=== PATIENT | female | born 1985 | race Caucasian/White ===

== ENCOUNTER 2023-02-17 08:00 | Outpatient (OUT) | payer BC, SELFPAY ==
--- NOTE | 2023-02-17 08:11 | MM_ITS ---
Patient: CHELO ROGERS Exam Date: 02/17/2023 : 1985 Gender:F Ordering : DR Hector Kellogg . Admission #: [id number] Family : DR KEN GRIGSBY M.D. Order #: [id number] CLICK HERE TO VIEW EXAM RADIOLOGY REPORT PROCEDURE: MM TOMOSYNTHESIS SCREENING BI COMPARISON: None. INDICATIONS: SCREENING Calculator Name NCI Breast Cancer Risk Assessment Tool 5 Year Breast Cancer Risk 0.70% Lifetime Breast Cancer Risk 13.70% Personal Breast Cancer No Personal Ovarian Cancer No Treatments None Family Cancers Grandmother-paternal with cervical cancer at age ~80; Aunt-paternal with uterine cancer at age 15. LOCATION: [facility] BREAST COMPOSITION: Heterogeneously dense,which may obscure small masses. FINDINGS: DIAGNOSTIC CATEGORY 2--BENIGN FINDING: RIGHT BREAST: No significant suspicious finding. Small benign appearing lymph node posterior upper-outer quadrant. LEFT BREAST: No significant suspicious finding. RECOMMENDATIONS: ROUTINE MAMMOGRAM AND CLINICAL EVALUATION IN 12 MONTHS. PLEASE NOTE: A NORMAL MAMMOGRAM DOES NOT EXCLUDE THE POSSIBILITY OF BREAST CANCER. A CLINICALLY SUSPICIOUS PALPABLE LUMP SHOULD BE BIOPSIED. Dictated by: Ilir Honeycutt M.D. on 02/17/2023 at 16:24 Approved by: Ilir Honeycutt M.D. on 02/17/2023 at 16:27
== END 2023-02-17 08:01 ==
LOC: MAMMO 08:02
PROVIDERS: PCP Internal Medicine; Visit Provider Obstetrics & Gynecology
DX: Z12.31 Encounter for screening mammogram for malignant neoplasm of breast (principal); Z80.49 Family history of malignant neoplasm of other genital organs
CPT/HCPCS: 77063; 77067

== ENCOUNTER 2024-02-07 20:56 | Outpatient (REF) | payer BC, SELFPAY | END 2024-02-07 20:57 | disposition home or self-care (01) | LOC: LAB 20:56 | PROVIDERS: PCP Family Medicine; Visit Provider Obstetrics & Gynecology | DX: Z01.419 Encounter for gynecological examination (general) (routine) without abnormal findings (principal) | CPT/HCPCS: 87624; 88175 ==

== ENCOUNTER 2024-02-11 11:03 | Outpatient (OUT) | payer BC, SELFPAY ==
--- NOTE | 2024-02-08 | MM_ITS ---
Patient Name: CHELO ROGERS MR#: [id number] : 1985 Exam Date: 02/08/2024 Ordering Doctor: DR Hector Kellogg . RADIOLOGY REPORT PROCEDURE: MM TOMOSYNTHESIS SCREENING BI COMPARISON: MM TOMOSYNTHESIS SCREENING BI, 02/17/2023. INDICATIONS: screening for malignant neoplasm Calculator Name NCI Breast Cancer Risk Assessment Tool 5 Year Breast Cancer Risk 0.80% Lifetime Breast Cancer Risk 13.60% Personal Breast Cancer No Personal Ovarian Cancer No Treatments None Family Cancers Grandmother-paternal with cervical cancer at age ~80; Aunt-paternal with uterine cancer at age 15. LOCATION: [facility] BREAST COMPOSITION: The breasts are heterogeneously dense,which may obscure small masses. FINDINGS: DIAGNOSTIC CATEGORY 2--BENIGN FINDING: RIGHT BREAST: No significant suspicious finding. Stable upper outer quadrant lymph node. No significant change has occurred. LEFT BREAST: No significant suspicious finding. No significant change has occurred. RECOMMENDATIONS: ROUTINE MAMMOGRAM AND CLINICAL EVALUATION IN 12 MONTHS. PLEASE NOTE: A NORMAL MAMMOGRAM DOES NOT EXCLUDE THE POSSIBILITY OF BREAST CANCER. A CLINICALLY SUSPICIOUS PALPABLE LUMP SHOULD BE BIOPSIED. Dictated by: Ilir Honeycutt M.D. on 02/10/2024 at 14:21 Approved by: Ilir Honeycutt M.D. on 02/10/2024 at 14:23
--- OUTSIDE RECORDS SUMMARY | 2024-02-11 11:26 | XMS_ITS | CCD ---
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 Role Phone Unknown, Referring Provider Unavailable Unav ailable Unavailable Unavailable Lora Ziegler Unavailable SMITA ., DR PRABHAKAR Primary Care Unavailable SMITA ., DR PRBAHAKAR Admitting Unavailable SMITA ., DR PRABHAKAR Attending Unavailable SMITA ., DR PRABHAKAR Consulting Unavailable SMITA ., DR PRABHAKAR Primary Care Unavailable CONSTANTINO, DR KEN Lawton Attending Unavailable CONSTANTINO, DR KNE Lawton Consulting Unavailable CONSTANTINO, DR KEN Lawton Admitting Unavailable CARLOS FERNANDES Attending Unavailable VANNA ORDOÑEZ Attending Unavailable Medications Current Medications Medication Drug Class(es) Dates Sig (Normalized) Sig (Original) amoxicillin 500 mg oral capsule (1 source) Penicillin-class Antibacterial Start: 09-27-2022 take 1 capsule by mouth every eight hours Amoxicillin 500 MG 1 capsule Orally three times a day for 10 day(s) Sep, Active Cetirizine (1 source) Histamine-1 Receptor Antagonist ZyrTEC Allergy Active dimenhyDRINATE (5 sources) Dramamine Active dimenhyDRINATE 5 0 MG TABS Quantity: 0 Refills: 0 Ordered: 28-Jan-2021 DO Active hydroCHLOROthiazide 25 mg / triamterene 37.5 mg oral tablet (5 sources) Potassium-sparing Diuretic, Thiazide Diuretic take 1 tablet by mouth every twenty-four hours Triamterene-HCTZ 37.5-25 MG 1 tablet in the morning Orally Once a day for 30 day(s) Active Triamterene-HCTZ 37.5-25 MG Oral Capsule Quantity: 0 Refills: 0 Ordered: 28-Jan-2021 DO Active Lipo-Flavonoid Plus (1 source) Lipo-Flavonoid P edgardo as directed Orally Active predniSONE 20 mg oral tablet (1 source) Start: 09-27-2022 take 1 tablet by mouth every twelve hours predniSONE 20 MG 1 tablet Orally 2 times a day for 5 day(s) Sep, Active Completed/Discontinued Medications Medication Drug Class(es) Dates Sig (Normalized) Sig (Original) amitriptyline hydrochloride 25 mg oral tablet (3 sources) Tricyclic Antidepressant Start: 01-28-2021 take 1 tablet by mouth at bedtime Amitriptyline HCl - 25 MG Oral Tablet TAKE 1 TABLET AT BEDTIME. Quantity: 30 Refills: 0 Ordered: 25-Mar-2021 Kvng Chen MD Start : 28-Jan-2021 Active Lipo Flavonoid Plus TABS (4 sources) Lipo Flavonoid Plus TABS Quantity: 0 Refills: 0 Ordered: 28-Jan-2021 DO Active loratadine 10 mg oral tablet (4 sources) Loratadine 10 MG Oral Tablet Quantity: 0 Refills: 0 Ordered: 28-Jan-2021 DO Active Problems Problem Classification Problem Date Documented Date Episodic/Chronic Conditions associated with dizziness or vertigo (3 sources) Meniere's disease; Translations: [Meniere's disease, unspecified] Chronic Immunizations and screening for infectious disease (2 sources) Contact with and (suspected) exposure to other viral communicable diseases; Translations: [Contact with and (suspected) exposure to other viral communicable diseases] Episodic Other ear and sense organ disorders (3 sources) Tinnitus; Translations: [Tinnitus, unspecified] Episodic Other screening for suspected conditions (not mental disorders or infectious disease) (4 sources) Encounter for screening for malignant neoplasm of cervix; Translations: [ENC SCREENING MALIG NEOPLASM CERV] Onset: 02-02-2023 Episodic Other upper respiratory infections (1 source) Streptococcal pharyngitis Episodic Results Test Name Value Interpretation Reference Range Facility COVID + FLU Quick Testingon 09-27-2022 SARS-CoV-2 (COVID-19) RNA TIANA+probe Ql (Unsp spec) Negative [facility] Other COVID + FLU Quick Testing Negative [facility] Other Quick Strepon 09-27-2022 S. pyogenes Org specific cx Ql (Throat) Positive [facility] Other Quick Strep [facility] [employer] Other CBC AUTO DIFFon 06-19-2022 BASO # 0.1 103/ul Normal 0.0-0.1 [facility] Comment on above: Performed By: #### C BC #### [facility] [address] [place] [address] Dr. Simin Estevez Basophils/100 WBC (Bld) 1.0 % Normal 0.2-2.0 [facility] Comment on above: Performed By: #### C BC #### [facility] [address] [place] [address] Dr. Simin Estevez EO # 0.2 103/ul Normal 0.0-0.7 [facility] Comment on above: Performed By: #### C BC #### [facility] [address] [place] [address] Dr. Simin Estevez Eosinophils/100 WBC (Bld) 3.2 % Normal 0.9-7.0 [facility] Comment on above: Performed By: #### C BC #### [facility] [address] [place] [address] Dr. Simin Estevez Erythrocyte distribution width (RBC) [Ratio] 12.1 % Normal 11.0-15.0 [facility] Comment on above: Performed By: #### C BC #### [facility] [address] [place] [address] Dr. Simin Estevez Hematocrit (Bld) [Volume fraction] 40.8 % Normal 36.0-48.0 [facility] Comment on above: Performed By: #### C BC #### [facility] [address] [place] [address] Dr. Simin Estevez Hemoglobin (Bld) [Mass/Vol] 14.2 g/dL Normal 12.0-16.0 [facility] Comment on above: Performed By: #### C BC #### [facility] [address] [place] [address] Dr. Simin Estevez IG # 0.01 10e3/ul Normal 0.00-0.03 [facility] Comment on above: Performed By: #### C BC #### [facility] [address] [place] [address] Dr. Simin Estevez IG % 0.2 % Normal 0.0-0.5 [facility] Comment on above: Performed By: #### C BC #### [facility] [address] [place] [address] Dr. Simin Estevez LYMPH # 1.6 103/ul Normal 1.2-3.8 [facility] Comment on above: Performed By: #### C BC #### [facility] [address] [place] [address] Dr. Simin Estevez Lymphocytes/100 WBC (Bld) 26.1 % Normal 20.5-60.0 [facility] Comment on above: Performed By: #### C BC #### [facility] [address] [place] [address] Dr. Simin Estevez MANUAL DIFF REQ NO Normal [facility] Comment on above: Performed By: #### C BC #### [facility] [address] [place] [address] Dr. Simin Estevez MCH (RBC) [Entitic mass] 30.5 pg Normal 26.7-34.0 [facility] Comment on above: Performed By: #### C BC #### [facility] [address] [place] [address] Dr. Simin Estevez MCHC (RBC) [Mass/Vol] 34.8 g/dL Normal 29.9-35.2 [facility] Comment on above: Performed By: #### C BC #### [facility] [address] [place] [address] Dr. Simin Estevez MCV (RBC) [Entitic vol] 87.6 fL Normal 81.0-99.0 [facility] Comment on above: Performed By: #### C BC #### [facility] [address] [place] [address] Dr. Simin Estevez MONO # 0.6 103/ul Normal 0.3-0.8 [facility] Comment on above: Performed By: #### C BC #### [facility] [address] [id number] [address] Simin Estevez Monocytes/100 WBC (Bld) 9.2 % Normal 1.7-12.0 [facility] Comment on above: Performed By: #### C BC #### [facility] [address] [address] [address] Simin Estevez NEUT # 3.6 103/ul Normal 1.4-6.5 [facility] Comment on above: Performed By: #### C BC #### [facility] [address] [place] [address] Dr. Simin Estevez Neutrophils/100 WBC (Bld) 60.3 % Normal 43.0-75.0 [facility] Comment on above: Performed By: #### C BC #### [facility] [address] [place] [address] Dr. Simin Estevez Platelet mean volume (Bld) [Entitic vol] 8.7 fL Critically low 9.5-13.5 [facility] Comment on above: Performed By: #### C BC #### [facility] [address] [place] [address] Dr. Simin Estevez PLT 266 103/ul Normal 150-450 [facility] Comment on above: Performed By: #### C BC #### [facility] [address] [place] [address] Dr. Simin Estevez RBC 4.66 106/ul Normal 4.20-5.40 [facility] Comment on above: Performed By: #### C BC #### [facility] [address] [place] [address] Dr. Simin Estevez WBC 6.0 103/ul Normal 4.0-11.0 [facility] Comment on above: Performed By: #### C BC #### [facility] [address] [place] [address] Dr. Simin Estevez LIPID PROFILEon 06-19-2022 CHOL-HDL RATIO NORM SEE BELOW Normal [facility] Comment on above: Result Comment: 3.3 - 4.4 LOW RISK 4.4 - 7.1 AVERAGE RISK 7.1 - 11.0 MODERATE RISK >11.0 HIGH RISK Performed By: #### L IPID, CMP #### [facility] [address] [address] [address] Simin Estevez Cholesterol [Mass/Vol] 182 mg/dL Normal <=200 [facility] Comment on above: Performed By: #### L IPID, CMP #### [facility] [address] [address] [address] Simin Estevez Cholesterol in HDL [Mass/Vol] 59 mg/dL Normal 40-60 [facility] Comment on above: Performed By: #### L IPID, CMP #### [facility] [address] [address] [address] Simin Estevez Cholesterol in LDL [Mass/Vol] 104.8 mg/dL Normal [facility] Comment on above: Performed By: #### L IPID, CMP #### [facility] [address] [address] [address] Simin Estevez Cholesterol.total/ Cholesterol in HDL [Mass ratio] 3.1 {ratio} Normal [facility] Comment on above: Performed By: #### L IPID, CMP #### [facility] [address] [address] [address] Simin Estevez HDL NORMAL > or = 60 mg/dl - LOW CARDIOVASCULAR RISK <40 mg/dl - HIGH CARDIOVASCULAR RISK Normal [facility] Comment on above: Performed By: #### L IPID, CMP #### [facility] [address] [address] [address] Simin Estevez LDL CALC NORMAL SEE BELOW Normal [facility] Comment on above: Result Comment: <100 mg/dl OPTIMAL 100 - 129 mg/dl NEAR OR ABOVE OPTIMAL 130 - 159 mg/dl BORDERLINE HIGH 160 - 189 mg/dl HIGH >190 mg/dl VERY HIGH Performed By: #### L IPID, CMP #### [facility] [address] [address] [address] Simin Estevez Triglyceride [Mass/Vol] 91 mg/dL Normal <=150 [facility] Comment on above: Performed By: #### L IPID, CMP #### [facility] [address] [address] [address] Simin Estevez VLDL CALC 18.2 mg/dL Normal [facility] Comment on above: Performed By: #### L IPID, CMP #### [facility] [address] [address] [address] Simin Estevez PROF 14(COMP METB)on 06-19- 022 Albumin [Mass/Vol] 3.7 g/dL Normal 3.4-5.0 [facility] Comment on above: Performed By: #### L IPID, CMP #### [facility] [address] [place] [address] Dr. Simin Estevez Albumin/Globulin [Mass ratio] 1.2 {ratio} Normal [facility] Comment on above: Performed By: #### L IPID, CMP #### [facility] [address] [place] [address] Dr. Simin Estevez ALP [Catalytic activity/Vol] 37 U/L Critically low 46-116 [facility] Comment on above: Performed By: #### L IPID, CMP #### [facility] [address] [place] [address] Dr. Simin Estevez ALT [Catalytic activity/Vol] 46 U/L Normal 14-59 [facility] Comment on above: Performed By: #### L IPID, CMP #### [facility] [address] [place] [address] Dr. Simin Estevez Anion gap [Moles/Vol] 6.0 mmol/L Normal [facility] Comment on above: Performed By: #### L IPID, CMP #### [facility] [address] [place] [address] Dr. Simin Estevez AST [Catalytic activity/Vol] 18 U/L Normal 15-37 [facility] Comment on above: Performed By: #### L IPID, CMP #### [facility] [address] [place] [address] Dr. Simin Estevez Bilirubin [Mass/Vol] 0.6 mg/dL Normal 0.2-1.0 [facility] Comment on above: Performed By: #### L IPID, CMP #### [facility] [address] [address] [address] Simin Estevez Calcium [Mass/Vol] 8.9 mg/dL Normal 8.5-10.1 [facility] Comment on above: Performed By: #### L IPID, CMP #### [facility] [address] [address] [address] Simin Estevez Chloride [Moles/Vol] 101 mmol/L Normal 98-107 [facility] Comment on above: Performed By: #### L IPID, CMP #### [facility] [address] [place] [address] Dr. Simin Estevez CO2 [Moles/Vol] 36.1 mmol/L Critically high 21.0-32.0 [facility] Comment on above: Performed By: #### L IPID, CMP #### [facility] [address] [place] [address] Dr. Simin Estevez Creatinine [Mass/Vol] 0.78 mg/dL Normal 0.55-1.02 [facility] Comment on above: Performed By: #### L IPID, CMP #### [facility] [address] [place] [address] Dr. Simin Estevez EGFR-AF CZECH >60 Normal >=60 [facility] Comment on above: Performed By: #### L IPID, CMP #### [facility] [address] [place] [address] Dr. Simin Estevez EGFR-NON AF CZECH >60 Normal >=60 [facility] Comment on above: Performed By: #### L IPID, CMP #### [facility] [address] [place] [address] Dr. Simin Estevez Globulin (S) [Mass/Vol] 3.2 g/dL Normal [facility] Comment on above: Performed By: #### L IPID, CMP #### [facility] [address] [place] [address] Dr. Simin Estevez Glucose [Mass/Vol] 81 mg/dL Normal 74-106 [facility] Comment on above: Performed By: #### L IPID, CMP #### [facility] [address] [address] [address] Simin Estevez Potassium [Moles/Vol] 3.1 mmol/L Critically low 3.5-5.1 [facility] Comment on above: Performed By: #### L IPID, CMP #### [facility] [address] [address] [address] Simin Estevez Protein [Mass/Vol] 6.9 g/dL Normal 6.4-8.2 [facility] Comment on above: Performed By: #### L IPID, CMP #### [facility] [address] [address] [address] Simin Estevez Sodium [Moles/Vol] 140 mmol/L Normal 136-145 [facility] Comment on above: Performed By: #### L IPID, CMP #### [facility] [address] [address] [address] Simin Estevez Urea nitrogen [Mass/Vol] 12.0 mg/dL Normal 7.0-18.0 [facility] Comment on above: Performed By: #### L IPID, CMP #### [facility] [address] [address] [address] Simin Estevez Urea nitrogen/Creatinin e [Mass ratio] 15.4 mg/mg Normal [facility] Comment on above: Performed By: #### L IPID, CMP #### [facility] [address] [place] [address] Dr. Simin Estevez Thyroid Stimulating Hormoneo n 06-27-2021 TSH Qn 1.10 m[IU]/L Normal 0.45-5.33 [facility] Comment on above: Result Comment: PERF ORMED BY: [place] [address] PATHOLOGIST DEHORNER JAY OWEN M.D. Performed By: #### T SH3 #### [address] Initial Visit (Otolaryngolog y)on 01-28-2021 Initial Visit (Otolaryngology) Orders Tobacco Use Screening; Status:Complete; Done: 28Jan2021 Chief Complaint New patient visit possible meniere's disease History of Present IllnessHistory of present illness: This is a 35-year-old female referred by Dr. Veronica for evaluation and management of patient left-sided Mnire's disease and subjective non-bothersome tinnitus. She has been struggling with hearing at work given face mask requirement. She uses binaural hearing aids. She has had few episodes of vertiginous dizziness but no significant episodes lately. Denies associated auditory complains during vertigo episodes. Admits to family history of Meniere's and personal history of migraine. Stated that her Meniere's disease flared up when she had her second daughter. She is also complaining of non-bothersome tinnitus and does take like flavonoid acid for it. Her significant other regarding her condition. Reportedly had an MRI which was negative. The patients current medications, active allergies and list of medical problems were reviewed in the EHR and confirmed electronically. Physical Examination: CONSTITUTIONAL: No acute distress VOICE: No hoarseness or other abnormality RESPIRATION: Breathing comfortably, no stridor CV: No clubbing/cyanosis/ed karla in hands EYES: EOM intact, sclera clear NEURO: Alert and oriented times 3, Cranial nerves II-XII grossly intact and symmetric bilaterally HEAD AND FACE: Symmetric facial features, no masses or lesions RIGHT EAR: Normal external ear and post auricular area, no visible lesions, external auditory canal patent, tympanic membrane intact, no retraction, no signs of mass, effusion, or infection within the middle ear LEFT EAR: Normal external ear and post auricular area, no visible lesions, external auditory canal patent, tympanic membrane intact, no retraction, no signs of mass, effusion, or infection within the middle ear NOSE: Deferred due to Covid-19 pandemic. ORAL CAVITY/OROPHARYNX/LI PS: Deferred due to Covid-19 pandemic. PHARYNGEAL NEIL: Deferred due to Covid-19 pandemic. NECK/LYMPH: No LAD, no thyroid masses, trachea midline SKIN: Neck and facial skin is without scar or injury PSYCH: Alert and oriented with appropriate mood and affect Romberg test negative Sharpened Romberg with tendency to fall to the right side. Diagnostic testing: Audiogram obtained on 07/24/2020 reviewed showed on the right mild to moderate rising to mild sensorineural hearing loss with excellent speech discrimination. Left was moderate to moderately severe sensorineural hearing loss and speech discrimination 92%. Bilateral asymmetrical sensorineural hearing loss I personally reviewed the available patients external record and independently reviewed their audiometric testing as detailed in my note and agree with the detailed report. Impression: Asymmetrical sensorineural hearing loss Left-sided Mnire's disease History of migraine History of vertigo Subjective tinnitus Recommendation: We reviewed her different diagnoses. Her Mnire's disease is well controlled currently with medication and no indication for further surgical management at this time. We discussed the various distraction and masking techniques for her tinnitus. I will prescribe her Elavil 25 mg to take as needed. Hearing aids may need to be adjusted. Follow-up with Dr. Fenrandes for the time being and if her vertiginous attacks worsen then I would be happy to see her to discuss further options. All questions were answered to her satisfaction I discussed with the patient the complexity of my medical decision making including the treatment and testing rational, indications of their elective procedure and possible adverse effects and/or complications. Based on the provided documentation and my professional assessment of this patients chronic stable conditions, the complexity of evaluation and treatment is moderate. This note was created using speech recognition child care specialist software. Despite proofreading, several typographical errors might be present that might affect the meaning of the content. Please call with any questions. Surgical History History of Anterior cruciate ligament repair Social History Employed Lives with family No alcohol use Non-smoker (V49.89) (Z78.9) Allergies No Known Drug Allergies Recorded By: Cindi Rivera; 01/28/2021 10:09:24 AM Current Meds Medication NameInstruction dimenhyDRINATE 50 MG TABS Lipo Flavonoid Plus TABS Loratadine 10 MG Oral Tablet Triamterene-HCTZ 37.5-25 MG Oral Capsule Vitals Vital Signs Recorded: [id number] 10:06AM Uvzxzwjoosz28.2 F Height5 ft 9 in Giooai744 lb 4 oz BMI Wsjbbyaqlp54.36 kg/m2 BSA Calculated2 Tobacco Useb) No Fall Screeninga) No falls within the last year 'Scores and Scales' Signatures Electronically signed by : Kvng Chen MD; Jan 28 2021 11:26AM EST (Author) Normal [facility]tan Tobacco Screening.on Fall risk assessment a) No falls within the last year -Otolaryngology -[employer] Work Phone: Tobacco use status CP b) No [facility] Work Phone: Tobacco Screening. b) No [facility] [facility] -[employer] Work Phone: Vital Signs Date Time Vital Sign Value Performing Clinician Facility 09-27-2022 10:00-0500 Body height 172.72 cm Lora Jordanmond Other [facility] Other 09-27-2022 10:00-0500 Body mass index (BMI) [Ratio] 28.13 kg/m2 Lora Jordanmond Other [facility] Other 09-27-2022 10:00-0500 Body temperature 98.4 [degF] Lora Jordanmond Other [facility] Other 09-27-2022 10:00-0500 Body weight 83.92 kg Lora Ziegler Other [facility] Other 09-27-2022 10:00-0500 Diastolic blood pressure 72 mm[Hg] Lora Jrodanmond Other [facility] Other 09-27-2022 10:00-0500 Respiratory rate 16 /min Lora Jordanmond Other [facility] Other 09-27-2022 10:00-0500 SaO2% (BldA) [Mass fraction] 98 % Lora Jordanmond Other [facility] Other 09-27-2022 10:00-0500 Systolic blood pressure 118 mm[Hg] Lora Karlie Other [facility] Other 01-28-2021 10:06-0400 Body height 175.26 cm Referring Provider Unknown TY-Crpjhangldbgiw-[facility]n [facility] Work Phone: 01-28-2021 [phone] Body mass index (BMI) [Ratio] 27.36 kg/m2 Referring Provider Unknown GF-Rixnnigvfbnfnu-Orz [facility] Work Phone: 01-28-2021 [phone] Body surface area Derived from formula 2 m2 Referring Provider Unknown NS-Xfrxnutighrxyd-Jja [facility] Work Phone: [phone] Body temperature 97.2 [degF] Referring Provider Unknown WZ-Dhxngjupifpzom-Msu [facility] Work Phone: [phone] Body weight 84.03 kg Referring Provider Unknown KP-Rzgwyztfuuzirl-Joq [facility] Work Phone: Encounters Encounter Date Encounter Type Care Provider Facility Start: 02-07-2024 End: 02-07-2024 ambulatory VANNA ORDOÑEZ Not Available Start: 11-29-2023 End: 11-29-2023 ambulatory CARLOS FERNANDES Not Available Start: 02-02-2023 End: 02-02-[address] VANNA ORDOÑEZ . Facility: Start: 09-27-2022 End: 09-27-2022 ambulatory Lora Ziegler Other [facility] Other Start: 09-27-2022 Office outpatient ne w 30 minutes Lora Ziegler [facility] Start: 06-20-2022 Encounter for genera l adult medical examination without abnormal findings DR KEN CONSTANTINO [facility] Start: 06-19-2022 End: 06-20-[address] VANNA ORDOÑEZ . Facility: Start: 06-19-2022 End: 06-20-2022 Encounter for general adult medical examination without abnormal findings DR VANNA ORDOÑEZ . Facility: Start: 03-25-2021 AUDIT Referring Prov ider Unknown EM-Buoxeycumjcuny-Tzrvi sharda Work Phone: Start: 02-20-2021 AUDIT Referring Prov ider Unknown BW-Ictzujauplfqbd-Rrgde burg Work Phone: Start: 01-28-2021 Office consultation new/estab patient 60 min Referring Provider Unknown OK-Icxphxtydgnttc-Ajmqa ake Work Phone: Procedures Date Procedure Procedure Detail Performing Clinician Repair of anterior c ruciate ligament of knee joint Referring Provider Unknown Payers Date Payer Category Payer Unknown [id number] [id number] [id number] 1983 Unknown [id number] 2.16.84 [id number] 1983 Unknown [id number] [id number] [id number] 1983 Unknown [id number] 2.16.84 [id number] [facility] ONLAN [id number] Unknown ANTHEM Social History Date Type Detail Facility [facility] Work Phone: Sex Assigned At Sex Assigned At Bir th [facility] Other Evaluation note 09-27-2022 Note Date & Type Note Facility 09-27-2022 Evaluation note Encounter Date Diagnosis Assessment Notes Sep, Contact with and (suspected) exposure to other viral communicable diseases (ICD-10 - Z20.828) Sep, Strep pharyngitis (ICD-10 - J02.0) Strep throat material was printed Drink plenty fluids, get plenty of rest. Take the amoxicillin and the prednisone as prescribed until gone. Take Tylenol or Motrin as needed for aches pains or fevers. Off work tomorrow. Follow-up with your family physician if no improvement in 2 to 3 days. [facility] Other History general Narrative - Reported Note Date & Type Note Facility History general Narrative - Reported Type Medical History [facility] Medical History [facility] History Left ear deafness Surgical History ACL left knee Surgical History tubal ligation Hospitalization History See past surgical hx [facility] Other History of Present illness Narrative Note Date & Type Note Facility History of Present illness Narrative History of present illness:This is a 35-year-old female referred by Dr. Veronica for evaluation and management of patient left-sided M ni re's disease and subjective non-bothersome tinnitus. She has been struggling with hearing at work given face mask requirement. She uses binaural hearing aids. She has had few episodes of vertiginous dizziness but no significant episodes lately. Denies associated auditory complains during vertigo episodes. Admits to family history of Meniere's and personal history of migraine. Stated that her Meniere's disease flared up when she had her second daughter. She is also complaining of non-bothersome tinnitus and does take like flavonoid acid for it. Her significant other regarding her condition. Reportedly had an MRI which was negative.The patient s current medications, active allergies and list of medical problems were reviewed in the EHR and confirmed electronically.Physical Examination:CONSTITUTIONAL: No acute distressVOICE: No hoarseness or other abnormalityRESPIRATION: Breathing comfortably, no stridorCV: No clubbing/cyanosis/edema in handsEYES: EOM intact, sclera clearNEURO: Alert and oriented times 3, Cranial nerves II-XII grossly intact and symmetric bilaterallyHEAD AND FACE: Symmetric facial features, no masses or lesionsRIGHT EAR: Normal external ear and post auricular area, no visible lesions, external auditory canal patent, tympanic membrane intact, no retraction, no signs of mass, effusion, or infection within the middle earLEFT EAR: Normal external ear and post auricular area, no visible lesions, external auditory canal patent, tympanic membrane intact, no retraction, no signs of mass, effusion, or infection within the middle earNOSE: Deferred due to Covid-19 pandemic.ORAL CAVITY/OROPHARYNX/LIPS: Deferred due to Covid-19 pandemic.PHARYNGEAL NEIL: Deferred due to Covid-19 pandemic.NECK/LYMPH: No LAD, no thyroid masses, trachea midlineSKIN: Neck and facial skin is without scar or injuryPSYCH: Alert and oriented with appropriate mood and affectRomberg test negativeSharpened Romberg with tendency to fall to the right side.Diagnostic testing:Audiogram obtained on 07/24/2020 reviewed showed on the right mild to moderate rising to mild sensorineural hearing loss with excellent speech discrimination. Left was moderate to moderately severe sensorineural hearing loss and speech discrimination 92%. Bilateral asymmetrical sensorineural hearing lossI personally reviewed the available patient s external record and independently reviewed their audiometric testing as detailed in my note and agree with the detailed report.Impression:Asymmetrical sensorineural hearing lossLeft-sided M ni re's diseaseHistory of migraineHistory of vertigoSubjective tinnitusRecommendation:We reviewed her different diagnoses. Her M ni re's disease is well controlled currently with medication and no indication for further surgical management at this time. We discussed the various distraction and masking techniques for her tinnitus. I will prescribe her Elavil 25 mg to take as needed. Hearing aids may need to be adjusted. Follow-up with Dr. Fernandes for the time being and if her vertiginous attacks worsen then I would be happy to see her to discuss further options. All questions were answered to her satisfactionI discussed with the patient the complexity of my medical decision making including the treatment and testing rational, indications of their elective procedure and possible adverse effects and/or complications. Based on the provided documentation and my professional assessment of this patient s chronic stable conditions, the complexity of evaluation and treatment is moderate.This note was created using speech recognition child care specialist software. Despite proofreading, several typographical errors might be present that might affect the meaning of the content. Please call with any questions. [id number] e Work Phone: History of Present illness Narrative Note Date & Type Note Facility History of Present illness Narrative History of present illness:This is a 35-year-old female referred by Dr. Veronica for evaluation and management of patient left-sided M ni re's disease and subjective non-bothersome tinnitus. She has been struggling with hearing at work given face mask requirement. She uses binaural hearing aids. She has had few episodes of vertiginous dizziness but no significant episodes lately. Denies associated auditory complains during vertigo episodes. Admits to family history of Meniere's and personal history of migraine. Stated that her Meniere's disease flared up when she had her second daughter. She is also complaining of non-bothersome tinnitus and does take like flavonoid acid for it. Her significant other regarding her condition. Reportedly had an MRI which was negative.The patient s current medications, active allergies and list of medical problems were reviewed in the EHR and confirmed electronically.Physical Examination:CONSTITUTIONAL: No acute distressVOICE: No hoarseness or other abnormalityRESPIRATION: Breathing comfortably, no stridorCV: No clubbing/cyanosis/edema in handsEYES: EOM intact, sclera clearNEURO: Alert and oriented times 3, Cranial nerves II-XII grossly intact and symmetric bilaterallyHEAD AND FACE: Symmetric facial features, no masses or lesionsRIGHT EAR: Normal external ear and post auricular area, no visible lesions, external auditory canal patent, tympanic membrane intact, no retraction, no signs of mass, effusion, or infection within the middle earLEFT EAR: Normal external ear and post auricular area, no visible lesions, external auditory canal patent, tympanic membrane intact, no retraction, no signs of mass, effusion, or infection within the middle earNOSE: Deferred due to Covid-19 pandemic.ORAL CAVITY/OROPHARYNX/LIPS: Deferred due to Covid-19 pandemic.PHARYNGEAL NEIL: Deferred due to Covid-19 pandemic.NECK/LYMPH: No LAD, no thyroid masses, trachea midlineSKIN: Neck and facial skin is without scar or injuryPSYCH: Alert and oriented with appropriate mood and affectRomberg test negativeSharpened Romberg with tendency to fall to the right side.Diagnostic testing:Audiogram obtained on 07/24/2020 reviewed showed on the right mild to moderate rising to mild sensorineural hearing loss with excellent speech discrimination. Left was moderate to moderately severe sensorineural hearing loss and speech discrimination 92%. Bilateral asymmetrical sensorineural hearing lossI personally reviewed the available patient s external record and independently reviewed their audiometric testing as detailed in my note and agree with the detailed report.Impression:Asymmetrical sensorineural hearing lossLeft-sided M ni re's diseaseHistory of migraineHistory of vertigoSubjective tinnitusRecommendation:We reviewed her different diagnoses. Her M ni re's disease is well controlled currently with medication and no indication for further surgical management at this time. We discussed the various distraction and masking techniques for her tinnitus. I will prescribe her Elavil 25 mg to take as needed. Hearing aids may need to be adjusted. Follow-up with Dr. Fernandes for the time being and if her vertiginous attacks worsen then I would be happy to see her to discuss further options. All questions were answered to her satisfactionI discussed with the patient the complexity of my medical decision making including the treatment and testing rational, indications of their elective procedure and possible adverse effects and/or complications. Based on the provided documentation and my professional assessment of this patient s chronic stable conditions, the complexity of evaluation and treatment is moderate.This note was created using speech recognition child care specialist software. Despite proofreading, several typographical errors might be present that might affect the meaning of the content. Please call with any questions. [id number] rg Work Phone: Chief Complaint New patient visit possible meniere's diseaseNew patient visit possible meniere's disease Summary Purpose Family History No Family History Records FoundNo Family History Records FoundNo Family History Records FoundNo Family History Records Found Advance Directives No Advanced Directives Records FoundNo Advanced Directives Records FoundNo Advanced Directives Records FoundNo Advanced Directives Records Found Additional Source Comments INFORMATION SOURCE (unrecogn ized section and content) DATE CREATED AUTHOR 02/01/2021 [employer] DATE CREATED AUTHOR AUTHOR'S ORGANIZ ATION 10/04/2021 [facility] DATE CREATED AUTHOR AUTHOR'S ORGANIZ ATION 02/12/2023 [facility] DATE CREATED AUTHOR AUTHOR'S ORGANIZ ATION 02/07/2024 [facility] EPIC REASON FOR VISIT (unrecogniz ed section and content) SORE THROAT, CONGESTION FOR RECORDS PERTAINING TO PATIENTS WHO ARE OR HAVE BEEN ENROLLED IN A CHEMICAL DEPENDENCY/SUBSTANCEABUSE PROGRAM, SOME INFORMATION MAY BE OMITTED. This clinical summary was aggregated from multiple sources. Caution should be exercised in using it in the provision of clinical care. This summary normalizes information from multiple sources, and as a consequence, information in this document may materially change the coding, format and clinical context of patient data. In addition, data may be omitted in some cases. CLINICAL DECISIONS SHOULD BE BASED ON THE PRIMARY CLINICAL RECORDS. [facility]. provides no warranty or guarantee of the accuracy or completeness of information in this document.
== END 2024-02-11 11:04 | disposition home or self-care (01) ==
LOC: MAMMO 11:03
PROVIDERS: PCP Family Medicine; Visit Provider Obstetrics & Gynecology
DX: Z12.31 Encounter for screening mammogram for malignant neoplasm of breast (principal); Z80.8 Family history of malignant neoplasm of other organs or systems
CPT/HCPCS: 77063; 77067

== ENCOUNTER 2025-02-12 08:45 | Outpatient (OUT) | payer BC, SELFPAY ==
--- NOTE | 2025-02-12 08:50 | MM_ITS ---
Patient Name: CHELO ROGERS MR#: [id number] : 1985 Exam Date: 02/12/2025 Ordering Doctor: DR VANNA ORDOÑEZ . RADIOLOGY REPORT PROCEDURE: MM TOMOSYNTHESIS SCREENING BI COMPARISON: MM TOMOSYNTHESIS SCREENING BI, 02/08/2024. MM TOMOSYNTHESIS SCREENING BI, 02/17/2023. INDICATIONS: Screening Calculator Name NCI Breast Cancer Risk Assessment Tool 5 Year Breast Cancer Risk 0.80% Lifetime Breast Cancer Risk 13.50% Personal Breast Cancer No Personal Ovarian Cancer No Treatments None Family Cancers Grandmother-paternal with cervical cancer at age ~80; Aunt-paternal with uterine cancer at age 15. LOCATION: [facility] BREAST COMPOSITION: The breasts are heterogeneously dense,which may obscure small masses. FINDINGS: DIAGNOSTIC CATEGORY 0--INCOMPLETE: NEED ADDITIONAL IMAGING EVALUATION. RIGHT BREAST: ASYMMETRY visible on only the cc view, located in the lateral breast, at the posterior depth, with size of approximately 5 mm. Left breast unremarkable . RECOMMENDATIONS: ADDITIONAL MAMMOGRAPHIC VIEWS REQUIRED: RIGHT BREAST - spot compression imaging ULTRASOUND: RIGHT BREAST PLEASE NOTE: A NORMAL MAMMOGRAM DOES NOT EXCLUDE THE POSSIBILITY OF BREAST CANCER. A CLINICALLY SUSPICIOUS PALPABLE LUMP SHOULD BE BIOPSIED. Dictated by: Fan Oneal DO on 02/12/2025 at 11:22 Approved by: Fan Oneal DO on 02/12/2025 at 11:33
--- OUTSIDE RECORDS SUMMARY | 2025-02-12 09:08 | XMS_ITS | CCD ---
Author Organization [facility] Care Team Providers Care Wheel Tuner Name Role Phone Unknown, Referring Provider Unavailable Unav ailable Unavailable Unavailable Lora Ziegler Unavailable SMITA ., DR PRABHAKAR Primary Care Unavailable SMITA ., DR PRABHAKAR Admitting Unavailable SMITA ., DR PRABHAKAR Attending Unavailable SMITA ., DR PRABHAKAR Consulting Unavailable SMITA ., DR PRABHAKAR Primary Care Unavailable CONSTANTINO, DR KING Lawton Attending Unavailable CONSTANTINO, DR KING Lawton Consulting Unavailable CONSTANTINO, DR KING Lawton Admitting Unavailable NO FAMILY, PHYSICIAN Primary Care Unavailable Letitia Soriano Attending Unavailable ChristieLetitia Admitting Unavailable NO FAMILY, PHYSICIAN Primary Care Provider Unava ilable Christie Letitia ECHAVARRIA Attending Provider [phone] King Constantino MD Unavailable King Constantino MD Primary Care Provider Ilir Sotelo MD Unavailable Brice Polanco Unavailable BRICE BRUNSON Attending Unavailable ESTHER SUÁREZ Attending Unavailable TIAN FERNANDES Attending Unavailable VANNA KELLOGG Attending Unavailable BRICE BRUNSON Attending Unavailable DAVE PEARSON Attending Unavailable ESTHER SUÁREZ Attending Unavailable TIAN FERNANDES Attending Unavailable DAVE PEARSON Attending Unavailable ESTHER SUÁREZ Attending Unavailable ESTHER SUÁREZ Attending Unavailable Allergies Allergy Classification Reported Allergen(s) Allergy Type Date of Onset Reaction(s) Facility (20 sources) Pollen Propensity to adverse reactions 4 [facility] Medications Current Medications Medication Drug Class(es) Dates Sig (Normalized) Sig (Original) [id number] 200 actuat albuterol 0.09 mg/actuat metered dose inhaler (1 source) beta2-Adrenergic Agonist Start: 07-17-2024 Albuterol Sulfate 90 mcg/actuation HFA aerosol inhaler Active 2 INH INHALATION EVERY 4-6 HOURS as needed for shortness of breath or wheezing 8.5 14 July 17, 2024 12:00am amitriptyline hydrochloride 25 mg oral tablet (4 sources) Tricyclic Antidepressant Start: 12-13-2024 take 0.5-1 tablets by mouth once daily at bedtime amitriptyline (Elavil) 25 MG tablet Indications: Migraine without aura and without status migrainosus, not intractable (CMS/HCC) 1/ - 1 tab PO QHS 30 tablet 2 12/13/2024 Active Start: 01-28-2021 take 1 tablet by tanner th at bedtime Amitriptyline HCl - 25 MG Oral Tablet TAKE 1 TABLET AT BEDTIME. Quantity: 30 Refills: 0 Ordered: 25-Mar-2021 Kvng Chen MD Start : 28-Jan-2021 Active amoxicillin 500 mg oral capsule (1 source) Penicillin-class Antibacterial Start: 09-27-2022 take 1 capsule by mouth every eight hours Amoxicillin 500 MG 1 capsule Orally three times a day for 10 day(s) Sep, Active azithromycin 250 mg oral tablet (1 source) Macrolide Antimicrobial Start: 07-17-2024 Azithromycin 250 mg tablet Active 0 PO .COMPLEX July 17, 2024 12:00am For 250 mg dose pack: take 500 mg today (day 1), then 250 mg for 4 days (days 2-5) PO BETAHISTINE (20 sources) Betahistine HCl (Betahistine Dihydrochloride) powder Active Cetirizine (1 source) Histamine-1 Receptor Antagonist ZyrTEC Allergy Active dimenhyDRINATE 50 mg oral tablet (20 sources) dimenhyDRINATE (Dramamine) 50 MG tablet Take 50 mg by mouth as needed at bedtime. Active Dramamine Active dimenhyDRINATE 5 0 MG TABS Quantity: 0 Refills: 0 Ordered: 28-Jan-2021 DO Active eletriptan 20 mg oral tablet (9 sources) Serotonin-1b and Serotonin-1d Receptor Agonist Start: 09-28-2024 End: 10-28-2024 eletriptan (Relpax) 20 MG tablet Indications: Migraine without aura and without status migrainosus, not intractable (CMS/HCC) Take 1 tablet (20 mg) by mouth 1 (one) time if needed for migraine (may repeat x1) May repeat in 2 hours if unresolved. Do not exceed 80 mg in 24 hours. 9 tablet 5 09/28/2024 Active hydroCHLOROthiazide 25 mg / triamterene 37.5 mg oral tablet (20 sources) Potassium-sparing Diuretic, Thiazide Diuretic Start: 07-25-2024 End: 10-23-2024 take 1 tablet by mouth once daily triamterene-hydro chlorothiazide (Maxzide-25) 37.5-25 MG tablet Indications: Meniere's disease, unspecified laterality Take 1 tablet by mouth Daily 90 tablet 3 07/25/2024 Active Start: 07-17-2024 take 1 tablet by tanner th once daily Triamterene-Hydrochlorothiazid 37.5-25 m g tablet Active 1 TAB PO Daily July 17, 2024 12:00am Start: 05-28-2023 take 1 tablet by tanner th in the morning triamterene-hydrochlorothiazide (Maxzide -25) 37.5-25 MG tablet Indications: Meniere's disease, unspecified laterality Take 1 tablet by mouth in the morning. 90 tablet 3 05/28/2023 Active take 1 tablet by tanner th every twenty-four hours Triamterene-HCTZ 37.5-25 MG 1 tablet in the morning Orally Once a day for 30 day(s) Active Triamterene-HCTZ 37.5-25 MG Oral Capsule Quantity: 0 Refills: 0 Ordered: 28-Jan-2021 DO Active Lipo-Flavonoid Plus (1 source) Lipo-Flavonoid P edgardo as directed Orally Active loratadine 10 mg oral tablet (20 sources) loratadine (Clar itin) 10 MG tablet 1 (one) time each day at the same time Active Loratadine 10 MG Oral Tablet Quantity: 0 Refills: 0 Ordered: 28-Jan-2021 DO Active methylPREDNISolone (5 sources) Corticosteroid Start: 11-23-2024 End: 11-23-2024 methylPREDNISolone (Medrol Dospak) 4 MG tablets Indications: status migrainosus Follow package instructions. Start no later than 2 PM. Finish each day's pills by supper. May use acid gudelia (famotidine, omeprazole) for acid stomach while on dose pack. 1 each 11/23/2024 11/23/2024 Discontinued (Therapy completed) Start: 11-23-2024 End: 11-30-2024 methylPREDNISolone (Medrol D ospak) 4 MG tablets Indications: Migraine without aura and without status migrainosus, not intractable (CMS/HCC) Follow schedule on package instructions 21 tablet 11/23/2024 11/30/2024 Active Start: 07-17-2024 take 1 tablet by mouth once Me thylprednisolone (Medrol (Galen)) 4 mg tablets,dose pack Active 0 PO per package directions July 17, 2024 12:00am PO PER PKG DIR predniSONE 20 mg oral tablet (1 source) Start: 09-27-2022 take 1 tablet by mouth every twelve hours predniSONE 20 MG 1 tablet Orally 2 times a day for 5 day(s) Sep, Active riboflavin 100 mg oral tablet (20 sources) Start: 12-07-2022 riboflavin (Vitamin B-2) 100 MG tablet 12/07/2022 Active SUMAtriptan 50 mg oral tablet (20 sources) Serotonin-1b and Serotonin-1d Receptor Agonist Start: 07-11-2024 End: 10-09-2024 SUMAtriptan (Imitrex) 50 MG tablet Indications: Migraine without aura and without status migrainosus, not intractable (CMS/HCC) TAKE 1 TABLET AFTER ONSET OF MIGRAINE, MAY REPEAT AFTER 2 HOURS IF HEADACHE RETURNS 27 tablet 07/11/2024 Active Start: 10-26-2022 End: 09-28-2024 SUMAtriptan (Imitrex) 100 MG tablet 10/26/2022 09/28/2024 Discontinued triamcinolone acetonide 1 mg/ml topical cream (20 sources) Corticosteroid Start: 11-17-2022 triamcinolone (Kenalog) 0.1 % cream APPLY TWICE DAILY TO AFFECTED AREAS OF ITCH NEEDED FOR FLARES 11/17/2022 Active Completed/Discontinued Medications Medication Drug Class(es) Dates Sig (Normalized) Sig (Original) Lipo Flavonoid Plus TABS (4 sources) Lipo Flavonoid P edgardo TABS Quantity: 0 Refills: 0 Ordered: 28-Jan-2021 DO Active OXcarbazepine 300 mg oral tablet (9 sources) Anti-epileptic Agent Start: 09-28-2024 End: 12-13-2024 take 1 tablet by mouth at bedtime OXcarbazepine (Trileptal) 300 MG tablet Indications: Migraine without aura and without status migrainosus, not intractable (CMS/HCC) TAKE 1 TABLET BY MOUTH AT BEDTIME 90 tablet 1 10/23/2024 12/13/2024 Discontinued (Side effects) topiramate 50 mg oral tablet (20 sources) Start: 06-05-2024 End: 12-13-2024 take 1 tablet by mouth in the morning topiramate 50 MG tablet Indications: Migraine without aura and without status migrainosus, not intractable (CMS/HCC) Take 50 mg by mouth in the morning and 50 mg before bedtime. 180 tablet 1 06/05/2024 12/13/2024 Discontinued (Side effects) Start: 06-05-2024 take 1 tablet by tanner th twice daily Topiramate 50 mg tablet Active 50 MG PO Twice daily July 17, 2024 5:27pm Start: 02-14-2024 End: 06-05-2024 take 1 tablet by mouth once daily in the morning, then take 2 tablets by mouth at bedtime topiramate (Topamax) 25 MG tablet Indications: Migraine without aura and without status migrainosus, not intractable (CMS/HCC) Take 1 tab (25mg) PO QAM and 2 tabs (50mg) PO at bedtime 270 tablet 1 02/14/2024 06/05/2024 Discontinued (Reorder) Problems Active Problems Problem Classification Problem Date Documented Date Episodic/Chronic Chronic obstructive pulmonary disease and bronchiectasis (2 sources) Bronchitis; Translations: [Bronchitis, not specified as acute or chronic] 07-17-2024 Episodic Conditions associated with dizziness or vertigo (20 sources) Meniere's disease; Translations: [Meniere's disease, unspecified] Onset: 05-26-2023 07-17-2024 Chronic Headache; including migraine (20 sources) Migraine without aura; Translations: [Migraine without aura, not intractable, without status migrainosus] Onset: 02-11-2024 02-11-2024 Chronic Immunizations and screening for infectious disease (3 sources) Contact with and (suspected) exposure to other viral communicable diseases; Translations: [Contact with or exposure to other viral diseases] Episodic Malaise and fatigue (4 sources) Fatigue; Translations: [Other fatigue] 09-28-2024 Episodic Other ear and sense organ disorders (20 sources) Asymmetrical sensorineural hearing loss; Translations: [Sensorineural hearing loss, bilateral] Onset: 05-26-2023 05-26-2023 Chronic Other ear and sense organ disorders (20 sources) Bilateral hearing loss; Translations: [Sensorineural hearing loss, unilateral, left ear, with restricted hearing on the contralateral side] Onset: 05-26-2023 05-26-2023 Chronic Other ear and sense organ disorders (6 sources) Sensorineural hearing loss, bilateral; Translations: [Sensorineural hearing loss, bilateral] 05-24-2024 Chronic Other ear and sense organ disorders (2 sources) Sensorineural hearing loss; Translations: [Unspecified sensorineural hearing loss] 05-27-2024 Chronic Other ear and sense organ disorders (5 sources) Tinnitus; Translations: [Tinnitus, unspecified] 05-27-2024 Episodic Other lower respiratory disease (1 source) Cough; Translations: [Cough] 07-17-2024 Episodic Other screening for suspected conditions (not mental disorders or infectious disease) (4 sources) Encounter for screening for malignant neoplasm of cervix; Translations: [ENC SCREENING MALIG NEOPLASM CERV] Onset: 02-02-2023 Episodic Other upper respiratory disease (20 sources) Chronic rhinitis; Translations: [Chronic rhinitis] Onset: 05-26-2023 05-26-2023 Chronic Other upper respiratory infections (2 sources) Streptococcal pharyngitis; Translations: [Acute pharyngitis, unspecified] Episodic Unclassified (1 source) Cough, unspecified; Translations: [Cough, unspecified] Onset: 07-17-2024 Past or Other Problems Problem Classification Problem Date Documented Da te Episodic/Chronic Other ear and sense organ disorders (20 sources) Bilateral tinnitus; Translations: [Tinnitus, bilateral] Onset: 05-26-2023 05-26-2023 Episodic Results Test Name Value Interpretation Reference Range Facility Influenza virus B Ag [Presen ce] in Upper respiratory specimen by Rapid immunoassayon 07-17-2024 FLUBV Ag IA.rapid Ql (Nph) Influenza virus B Ag [Presence] in Upper respiratory specimen by Rapid immunoassay [facility] No Panel Informationon 07-17 Influenza Type A (Rapid) Negative [facility] POC SARS CoV-2 Antigen Negative [facility] No Panel InformationOrdered By: Letitia Soriano on 07-17-2024 Quick Strep (POC) [facility] X-ray reportOrdered By: Michel Oneal on 07-17-2024 Study report [place] [address] XRay Report Signed Patient: An Malik MR#: [id number] : 1985 Acct:[id number] Age/Sex: 39 / F ADM Date: 4 Loc: XDUC Room: Type: [facility] Attending Dr: Letitia Soriano DOCK WORKER Copies to: Letitia Soriano APRN~ Ordering Provider: Letitia Soriano APRN Date of Service: 07/17/24 XR/XR chest 2V*: R05.9 - Cough, unspecified Plain film chest 2 view HISTORY: Cough for 3 weeks COMPARISON: None FINDINGS: SUPPORT DEVICES: None POSTSURGICAL CHANGES: None HEART: Within normal limits PULMONARY CESAR: Within normal limits MEDIASTINUM: Unremarkable LUNGS AND PLEURA: No acute lung process, pleural effusion or pneumothorax identified. BONY STRUCTURES: Intact ADDITIONAL FINDINGS None XR/XR chest 2V* IMPRESSION: No acute process. Impression dictated by: Fan Oneal M.D.07/17/2024 7:14 PM Dictation Location: [place] [address] Transcribed By: [facility] 07/17/241913 Dictated By: Fan Oneal DO 07/17/241913 Signed By: 07/17/241913 [facility] XR chest 2V*on 07-17-2024 XR chest 2V* [facility] [place] [id number] XRay Report Signed Patient: An Malik MR#: [id number] : 1985 Acct:[id number] Age/Sex: 39 / F ADM Date: 07/17/24 [facility] Type: [facility] Attending Dr: Letitia Soriano APRN Copies to: Letitia Soriano APRN Ordering Provider: Letitia Soriano APRN Date of Service: 07/17/24 XR/XR chest 2V*: R05.9 - Cough, unspecified Plain film chest 2 view HISTORY: Cough for 3 weeks COMPARISON: None FINDINGS: SUPPORT DEVICES: None POSTSURGICAL CHANGES: None HEART: Within normal limits PULMONARY CESAR: Within normal limits MEDIASTINUM: Unremarkable LUNGS AND PLEURA: No acute lung process, pleural effusion or pneumothorax identified. BONY STRUCTURES: Intact ADDITIONAL FINDINGS None XR/XR chest 2V* IMPRESSION: No acute process. Impression dictated by: Fan Oneal M.D.07/17/2024 7:14 PM Dictation Location: [place] [address] Transcribed By: [facility] 07/17/241913 Dictated By: Fan Oneal DO 07/17/241913 Signed By: 07/17/241913 Normal [facility] Auditory function testson Bilateral Moderate to severe sensorineural hearing loss [facility] COVID + FLU Quick Testingon 09-27-2022 SARS-CoV-2 (COVID-19) RNA TIANA+probe Ql (Unsp spec) Negative [facility] [employer] Other COVID + FLU Quick Testing Negative [facility] [employer] Other Quick Strepon 09-27-2022 S. pyogenes Org specific cx Ql (Throat) Positive [facility] Other Quick Strep [facility] Other CBC AUTO DIFFon 06-19-2022 BASO # 0.1 103/ul Normal 0.0-0.1 [facility] Comment on above: Performed By: #### C BC #### [facility] [address] [place] [address] Dr. Simin Estevez Basophils/100 WBC (Bld) 1.0 % Normal 0.2-2.0 [facility] Comment on above: Performed By: #### C BC #### [facility] [address] [place] [address] Dr. Simin Estevez EO # 0.2 103/ul Normal 0.0-0.7 [facility] Comment on above: Performed By: #### C BC #### [facility] [address] [place] [address] Dr. Simin Estevez Eosinophils/100 WBC (Bld) 3.2 % Normal 0.9-7.0 [facility] Comment on above: Performed By: #### C BC #### [facility] [address] [place] [address] Dr. Simin Estevez Erythrocyte distribution width (RBC) [Ratio] 12.1 % Normal 11.0-15.0 [facility] Comment on above: Performed By: #### C BC #### [facility] [address] [place] [address] Dr. Simin Estevez Hematocrit (Bld) [Volume fraction] 40.8 % Normal 36.0-48.0 [facility] Comment on above: Performed By: #### C BC #### [facility] [address] [place] [address] Dr. Simin Estevez Hemoglobin (Bld) [Mass/Vol] 14.2 g/dL Normal 12.0-16.0 [facility] Comment on above: Performed By: #### C BC #### [facility] [address] [place] [address] Dr. Simin Estevez IG # 0.01 10e3/ul Normal 0.00-0.03 [facility] Comment on above: Performed By: #### C BC #### [facility] [address] [place] [address] Dr. Simin Estevez IG % 0.2 % Normal 0.0-0.5 [facility] Comment on above: Performed By: #### C BC #### [facility] [address] [place] [address] Dr. Simin Estevez LYMPH # 1.6 103/ul Normal 1.2-3.8 [facility] Comment on above: Performed By: #### C BC #### [facility] [address] [place] [address] Dr. Simin Estevez Lymphocytes/100 WBC (Bld) 26.1 % Normal 20.5-60.0 [facility] Comment on above: Performed By: #### C BC #### [facility] [address] [place] [address] Dr. Simin Estevez MANUAL DIFF REQ NO Normal [facility] Comment on above: Performed By: #### C BC #### [facility] [address] [place] [address] Dr. Simin Estevez MCH (RBC) [Entitic mass] 30.5 pg Normal 26.7-34.0 [facility] Comment on above: Performed By: #### C BC #### [facility] [address] [place] [address] Dr. Simin Estevez MCHC (RBC) [Mass/Vol] 34.8 g/dL Normal 29.9-35.2 [facility] Comment on above: Performed By: #### C BC #### [facility] [address] [place] [address] Dr. Simin Estevez MCV (RBC) [Entitic vol] 87.6 fL Normal 81.0-99.0 [facility] Comment on above: Performed By: #### C BC #### [facility] [address] [place] [address] Dr. Simin Estevez MONO # 0.6 103/ul Normal 0.3-0.8 [facility] Comment on above: Performed By: #### C BC #### [facility] [address] [place] [address] Dr. Simin Estevez Monocytes/100 WBC (Bld) 9.2 % Normal 1.7-12.0 [facility] Comment on above: Performed By: #### C BC #### [facility] [address] [place] [address] Dr. Simin Estevez NEUT # 3.6 103/ul Normal 1.4-6.5 [facility] Comment on above: Performed By: #### C BC #### [facility] [address] [place] [address] Dr. Simin Estevez Neutrophils/100 WBC (Bld) 60.3 % Normal 43.0-75.0 [facility] Comment on above: Performed By: #### C BC #### [facility] [address] [place] [address] Dr. Simin Estevez Platelet mean volume (Bld) [Entitic vol] 8.7 fL Critically low 9.5-13.5 [facility] Comment on above: Performed By: #### C BC #### [facility] [address] [place] [address] Dr. Simin Estevez PLT 266 103/ul Normal 150-450 [facility] Comment on above: Performed By: #### C BC #### [facility] [address] [place] [address] Dr. Simin Estevez RBC 4.66 106/ul Normal 4.20-5.40 [facility] Comment on above: Performed By: #### C BC #### [facility] [address] [place] [address] Dr. Simin Estevez WBC 6.0 103/ul Normal 4.0-11.0 [facility] Comment on above: Performed By: #### C BC #### [facility] [address] [place] [address] Dr. Simin Estevez LIPID PROFILEon 06-19-2022 CHOL-HDL RATIO NORM SEE BELOW Normal [facility] Comment on above: Result Comment: 3.3 - 4.4 LOW RISK 4.4 - 7.1 AVERAGE RISK 7.1 - 11.0 MODERATE RISK >11.0 HIGH RISK Performed By: #### L IPID, CMP #### [facility] [address] [place] [address] Dr. Simin Estevez Cholesterol [Mass/Vol] 182 mg/dL Normal <=200 [facility] Comment on above: Performed By: #### L IPID, CMP #### [facility] [address] [place] [address] Dr. Simin Estevez Cholesterol in HDL [Mass/Vol] 59 mg/dL Normal 40-60 [facility] Comment on above: Performed By: #### L IPID, CMP #### [facility] [address] [place] [address] [address] Simin Estevez Cholesterol in LDL [Mass/Vol] 104.8 mg/dL Normal [facility] Comment on above: Performed By: #### L IPID, CMP #### [facility] [address] [place] [address] Dr. Simin Estevez Cholesterol.total/Chol esterol in HDL [Mass ratio] 3.1 {ratio} Normal [facility] Comment on above: Performed By: #### L IPID, CMP #### [facility] [address] [place] [address] [address] Simin Estevez HDL NORMAL > or = 60 mg/dl - LOW CARDIOVASCULAR RISK <40 mg/dl - HIGH CARDIOVASCULAR RISK Normal [facility] Comment on above: Performed By: #### L IPID, CMP #### [facility] [address] [place] [address] Dr. Simin Estevez LDL CALC NORMAL SEE BELOW Normal [facility] Comment on above: Result Comment: <100 mg/dl OPTIMAL 100 - 129 mg/dl NEAR OR ABOVE OPTIMAL 130 - 159 mg/dl BORDERLINE HIGH 160 - 189 mg/dl HIGH >190 mg/dl VERY HIGH Performed By: #### L IPID, CMP #### [facility] [address] [place] [address] Dr. Simin Estevez Triglyceride [Mass/Vol] 91 mg/dL Normal <=150 [facility] Comment on above: Performed By: #### L IPID, CMP #### [facility] [address] [place] [address] Dr. Simin Estevez VLDL CALC 18.2 mg/dL Normal [facility] Comment on above: Performed By: #### L IPID, CMP #### [facility] [address] [place] [address] Dr. Simin Estevez PROF 14(COMP METB)on 022 Albumin [Mass/Vol] 3.7 g/dL Normal 3.4-5.0 [facility] Comment on above: Performed By: #### L IPID, CMP #### [facility] [address] [place] [address] [address] Simin Estevez Albumin/Globulin [Mass ratio] 1.2 {ratio} Normal [facility] Comment on above: Performed By: #### L IPID, CMP #### [facility] [address] [place] [address] [address] Simin Estevez ALP [Catalytic activity/Vol] 37 U/L Critically low 46-116 [facility] Comment on above: Performed By: #### L IPID, CMP #### [facility] [address] [place] [address] [address] Simin Estveez ALT [Catalytic activity/Vol] 46 U/L Normal 14-59 [facility] Comment on above: Performed By: #### L IPID, CMP #### [facility] [address] [place] [address] [address] Simin Estevez Anion gap [Moles/Vol] 6.0 mmol/L Normal [facility] Comment on above: Performed By: #### L IPID, CMP #### [facility] [address] [place] [address] [address] Simin Estevez AST [Catalytic activity/Vol] 18 U/L Normal 15-37 [facility] Comment on above: Performed By: #### L IPID, CMP #### [facility] [address] [place] [address] [address] Simin Estevez Bilirubin [Mass/Vol] 0.6 mg/dL Normal 0.2-1.0 [facility] Comment on above: Performed By: #### L IPID, CMP #### [facility] [address] [place] [address] [address] Simin Estevez Calcium [Mass/Vol] 8.9 mg/dL Normal 8.5-10.1 [facility] Comment on above: Performed By: #### L IPID, CMP #### [facility] [address] [place] [address] [address] Simin Estevez Chloride [Moles/Vol] 101 mmol/L Normal 98-107 [facility] Comment on above: Performed By: #### L IPID, CMP #### [facility] [address] [place] [address] [address] Simin Estevez CO2 [Moles/Vol] 36.1 mmol/L Critically high 21.0-32.0 [facility] Comment on above: Performed By: #### L IPID, CMP #### [facility] [address] [place] [address] [address] Simin Estevez Creatinine [Mass/Vol] 0.78 mg/dL Normal 0.55-1.02 [facility] Comment on above: Performed By: #### L IPID, CMP #### [facility] [address] [address] [address] Simin Estevez EGFR-AF MACANESE >60 Normal >=60 [facility] [place] Comment on above: Performed By: #### L IPID, CMP #### [facility] [address] [address] [address] Simin Estevez EGFR-NON AF MACANESE >60 Normal >=60 [facility] Comment on above: Performed By: #### L IPID, CMP #### [facility] [address] [address] [address] Simin Estevez Globulin (S) [Mass/Vol] 3.2 g/dL Normal [facility] Comment on above: Performed By: #### L IPID, CMP #### [facility] [address] [address] [address] Simin Estevez Glucose [Mass/Vol] 81 mg/dL Normal 74-106 [facility] Comment on above: Performed By: #### L IPID, CMP #### [facility] [address] [address] [address] Simin Estevez Potassium [Moles/Vol] 3.1 mmol/L Critically low 3.5-5.1 [facility] Comment on above: Performed By: #### L IPID, CMP #### [facility] [address] [address] [address] Simin Estevez Protein [Mass/Vol] 6.9 g/dL Normal 6.4-8.2 [facility] Comment on above: Performed By: #### L IPID, CMP #### [facility] [address] [address] [address] Simin Estevez Sodium [Moles/Vol] 140 mmol/L Normal 136-145 [facility] Comment on above: Performed By: #### L IPID, CMP #### [facility] [address] [address] [address] Simin Estevez Urea nitrogen [Mass/Vol] 12.0 mg/dL Normal 7.0-18.0 [facility] Comment on above: Performed By: #### L IPID, CMP #### [facility] [address] [address] [address] Simin Estevez Urea nitrogen/Creatinine [Mass ratio] 15.4 mg/mg Normal [facility] Comment on above: Performed By: #### L IPID, CMP #### [facility] [address] [address] [address] Simin Estevez Initial Visit (Otolaryngolog y)on 01-28-2021 Initial Visit [...] RESPIRATION: Breathing comfortably, no stridor CV: No clubbing/cyanosis/e diallo in hands EYES: EOM intact, sclera clear [...] NOSE: Deferred due to Covid-19 pandemic. ORAL CAVITY/OROPHARYNX/L IPS: Deferred due to Covid-19 pandemic. PHARYNGEAL NEIL: [...] This note was created using speech recognition automatic buffer software. Despite proofreading, several typographical errors might [...] MG Oral Capsule Vitals Vital Signs Recorded: 28Jan2021 10:06AM Hkweuphpnbi64.2 F Height5 ft 9 in Rrgpbt711 lb 4 oz BMI Vpaewdxehb47.36 kg/m2 BSA Calculated2 Tobacco Useb) No Fall Screeninga) No falls within the last year 'Scores and Scales' Signatures Electronically signed by : Kvng Chen MD; Jan 28 2021 11:26AM EST (Author) Normal [employer] Tobacco Screening.on 021 Fall risk assessment a) No falls within the last year MG-Otolaryngolo gy-[place] Work Phone: Tobacco use status [facility] b) No MG-Otolaryngolo gy-[place] Work Phone: Tobacco Screening. b) No MG-[place] laryngolo gy-Martha Work Phone: Vital Signs Date Time Vital Sign Value Performing Clinician Facility 11-23-2024 07:56-0400 Body height 175.3 cm Shoutlet Work Phone: [facility] 11-23-2024 07:56-0400 Body mass index (BMI) [Ratio] 29.09 kg/m2 Shoutlet Work Phone: [facility] 11-23-2024 07:56-0400 Body weight 89.36 kg Shoutlet Work Phone: [facility] 11-23-2024 07:56-0400 Diastolic blood pressure 78 mm[Hg] Shoutlet Work Phone: [facility] 11-23-2024 07:56-0400 Systolic blood pressure 110 mm[Hg] Brice Lowe PA Work Phone: [facility] 09-28-2024 10:01-0500 Body height 175.3 cm Brice Lowe PA Work Phone: [facility] 09-28-2024 10:01-0500 Body mass index (BMI) [Ratio] 28.24 kg/m2 Brice Lowe PA Work Phone: [facility] 09-28-2024 10:01-0500 Body weight 86.73 kg Brice Lowe PA Work Phone: [facility] 09-28-2024 10:01-0500 Diastolic blood pressure 78 mm[Hg] Brice Lowe PA Work Phone: [facility] 09-28-2024 10:01-0500 Systolic blood pressure 116 mm[Hg] Brice Lowe PA Work Phone: [facility] 07-17-2024 16:50-0500 Body height 172.72 cm PHYSICIAN NO [facility] 07-17-2024 16:50-0500 Body mass index (BMI) [Ratio] 29.5 kg/m2 PHYSICIAN NO [facility] 07-17-2024 16:50-0500 Body temperature 98.2 [degF] PHYSICIAN NO [facility] 07-17-2024 16:50-0500 Body weight 87.99 kg PHYSICIAN NO [facility] 07-17-2024 16:50-0500 Diastolic blood pressure 64 mm[Hg] PHYSICIAN NO [facility] 07-17-2024 16:50-0500 Heart rate 59 /min PHYSICIAN NO [facility] 07-17-2024 16:50-0500 Respiratory rate 17 /min PHYSICIAN NO [facility] 07-17-2024 16:50-0500 SaO2% (BldA) [Mass fraction] 97 % PHYSICIAN NO [facility] 07-17-2024 16:50-0500 Systolic blood pressure 98 mm[Hg] PHYSICIAN NO [facility] 06-05-2024 08:15-0400 Body height 175.3 cm Dave COSTA Work Phone: [facility] 06-05-2024 08:15-0400 Body mass index (BMI) [Ratio] 28.06 kg/m2 Dave Pearson PA Work Phone: [facility] 06-05-2024 08:15-0400 Body weight 86.18 kg Dave Pearson PA Work Phone: [facility] 06-05-2024 08:15-0400 Diastolic blood pressure 62 mm[Hg] Dave Pearson PA Work Phone: [facility] 06-05-2024 08:15-0400 Heart rate 62 /min Dave Pearson PA Work Phone: [facility] 06-05-2024 08:15-0400 Respiratory rate 16 /min Dave Pearson PA Work Phone: [facility] 06-05-2024 08:15-0400 SaO2% (BldA) [Mass fraction] 97 % Dave Pearson PA Work Phone: [facility] 06-05-2024 08:15-0400 Systolic blood pressure 98 mm[Hg] Dave Pearson PA Work Phone: [facility] 05-26-2024 09:03-0400 Body height 175.3 cm Tian Fernandes DO Work Phone: [facility] 05-26-2024 09:03-0400 Body mass index (BMI) [Ratio] 28.35 kg/m2 Tian Fernandes DO Work Phone: [facility] 05-26-2024 09:03-0400 Body weight 87.09 kg Tian Fernandes DO Work Phone: [facility] 09-27-2022 10:00-0500 Body height 172.72 cm Lora Ziegler Other [facility] Other 09-27-2022 10:00-0500 Body mass index (BMI) [Ratio] 28.13 kg/m2 Lora Ziegler Other [facility] Other 09-27-2022 10:00-0500 Body temperature 98.4 [degF] Lora Ziegler Other [facility] Other 09-27-2022 10:00-0500 Body weight 83.92 kg oLra Ziegler Other [facility] Other 09-27-2022 10:00-0500 Diastolic blood pressure 72 mm[Hg] Lora Ziegler Other [facility] Other 09-27-2022 10:00-0500 Respiratory rate 16 /min Lora Ziegler Other [facility] Other 09-27-2022 10:00-0500 SaO2% (BldA) [Mass fraction] 98 % Lora Ziegler Other [facility] Other 09-27-2022 10:00-0500 Systolic blood pressure 118 mm[Hg] Lora Ziegler Other [facility] Other 01-28-2021 10:06-0400 Body height 175.26 cm Referring Provider Unknown VY-Bwsalpjjcyalox-Xwx [place] Work Phone: 01-28-2021 10:06-0400 Body mass index (BMI) [Ratio] 27.36 kg/m2 Referring Provider Unknown GC-Elnnqbfnaoeqrv-Yau [place] Work Phone: 01-28-2021 10:06-0400 Body surface area Derived from formula 2 m2 Referring Provider Unknown TA-Gffubzgxzyunvk-Noa [place] Work Phone: 01-28-2021 10:06-0400 Body temperature 97.2 [degF] Referring Provider Unknown MB-Lumvchhblzhurd-Dqw [place] Work Phone: 01-28-2021 10:06-0400 Body weight 84.03 kg Referring Provider Unknown VF-Tbybammeactepx-Lby [place] Work Phone: Encounters Encounter Date Encounter Type Care Provider Facility Start: 12-13-2024 End: 12-13-2024 Telephone encounter Brice COSTA Work Phone: [facility] Start: 11-23-2024 End: 11-23-2024 Office outpatient visit 25 minutes Brice COSTA Work Phone: [facility] Comment on above: Migraine without aur a and without status migrainosus, not intractable (CMS/HCC) (Primary Dx); Fatigue, unspecified type; Migraine without aura, intractable, with status migrainosus (CMS/HCC) Start: 11-23-2024 End: 11-23-2024 ambulatory BRICE BRUNSON Not Available Start: 10-11-2024 End: 10-11-2024 Patient encounter procedure [facility] - Leonor Nix [facility] Comment on above: Sensorineural hearin g loss, bilateral (Primary Dx) Start: 10-11-2024 End: 10-11-2024 ambulatory BRICE JUICE Not Available Start: 10-04-2024 End: 10-04-2024 Bamboo flowsheet Esther Suárez CCC-A Work Phone: [facility] Start: 10-04-2024 End: 10-04-2024 Bamboo flowsheet Esther Suárez CCC-A Work Phone: [facility] Start: 10-04-2024 End: 10-04-2024 Clinical Support Esther Suárez CCC-A Work Phone: [facility] Comment on above: Sensorineural hearin g loss, bilateral (Primary Dx) Start: 09-28-2024 End: 09-28-2024 Bamboo flowsheet Brice COSTA Work Phone: [facility] Start: 09-28-2024 End: 09-28-2024 Bamboo flowsheet Brice COSTA Work Phone: [facility] Start: 09-28-2024 End: 09-28-2024 Office outpatient visit 25 minutes Brice COSTA Work Phone: [facility] Comment on above: Migraine without aur a and without status migrainosus, not intractable (CMS/HCC) (Primary Dx); Fatigue, unspecified type Start: 09-28-2024 End: 09-28-2024 ambulatory BRICE BRUNSON Not Available Start: 09-13-2024 End: 09-13-2024 Bamboo flowsheet Esther A Jose Armando CCC-A Work Phone: [facility] Start: 09-13-2024 End: 09-13-2024 Bamboo flowsheet Esther A Jose Armando CCC-A Work Phone: [facility] Start: 09-13-2024 End: 09-13-2024 Clinical Support Esther A Jose Armando CCC-A Work Phone: [facility] Comment on above: Sensorineural hearin g loss, bilateral (Primary Dx) Start: 09-13-2024 End: 09-13-2024 ambulatory ESTHER A JOSE ARMANDO Not Available Start: 08-19-2024 End: 08-19-2024 Bamboo flowsheet Esther A Jose Armando CCC-A Work Phone: [facility] Start: 08-19-2024 End: 08-19-2024 Bamboo flowsheet Esther A Jose Armando CCC-A Work Phone: [facility] Start: 08-19-2024 End: 08-19-2024 Clinical Support Esther A Jose Armando CCC-A Work Phone: [facility] Comment on above: Sensorineural hearin g loss, bilateral (Primary Dx) Start: 07-17-2024 End: 07-17-2024 Patient encounter procedure PHYSICIAN [facility] [place] Work Phone: Start: 07-17-2024 End: 07-17-2024 ambulatory PHYSICIAN NO [facility] Facility:[facility] Start: 07-17-2024 End: 07-17-2024 Patient encounter procedure PHYSICIAN NO [facility] [place] Work Phone: Start: 06-05-2024 End: 06-05-2024 Bamboo flowsheet Dave COSTA Work Phone: [facility] [address] Start: 06-05-2024 End: 06-05-2024 Bamboo flowsheet Dave COSTA Work Phone: [facility] [address] Start: 06-05-2024 End: 06-05-2024 Office outpatient visit 25 minutes Dave COSTA Work Phone: [facility] [place] [facility] Comment on above: Migraine without aur a and without status migrainosus, not intractable (CMS/[facility]) Start: 06-05-2024 End: 06-05-2024 ambulatory DAVE PEARSON Not Available Start: 05-26-2024 End: 05-26-2024 Bamboo flowsheet Tian Fernandes DO Work Phone: [facility] Start: 05-26-2024 End: 05-26-2024 Bamboo flowsheet Tian Fernandes DO Work Phone: [facility] Start: 05-26-2024 End: 05-26-2024 Office outpatient visit 25 minutes Tian Fernandes DO Work Phone: [facility] Comment on above: Meniere's disease, u nspecified laterality (Primary Dx); Sensorineural hearing loss (SNHL), unspecified laterality; Tinnitus, unspecified laterality Start: 05-26-2024 End: 05-26-2024 ambulatory TIAN FERNANDES Not Available Start: 05-24-2024 End: 05-24-2024 Bamboo flowsheet Esther Suárez [facility] Work Phone: [facility] Start: 05-24-2024 End: 05-24-2024 Bamboo flowsheet [facility] Work Phone: [facility] Start: 05-24-2024 End: 05-24-2024 Clinical Support Esther Suárez [facility] Work Phone: [facility] Comment on above: Sensorineural hearin g loss, bilateral (Primary Dx); Tinnitus, bilateral Start: 02-14-2024 End: 02-14-2024 ambulatory DAVE PEARSON Not Available Start: 02-07-2024 End: 02-07-2024 ambulatory VANNA KELLOGG Not Available Start: 11-29-2023 End: 11-29-2023 ambulatory TIAN FERNANDES Not Available Start: 02-02-2023 End: 02-02-[address] VANNA KELLOGG . Facility:[facility] Start: 09-27-2022 End: 09-27-2022 ambulatory Lora Ziegler Other [facility] Other Start: 09-27-2022 Office outpatient ne w 30 minutes Lora Ziegler [facility] [place] Start: 06-20-2022 Encounter for genera l adult medical examination without abnormal findings DR KING CONSTANTINO [facility] Start: 06-19-2022 End: 06-20-[address] VANNA KELLOGG . Facility:[facility] Start: 06-19-2022 End: 06-20-2022 Encounter for general adult medical examination without abnormal findings DR VANNA KELLOGG . Facility:[facility] Start: 03-25-2021 AUDIT Referring Prov ider Unknown MQ-Flpnhikxvtgewk-Bugd [place] Work Phone: Start: 02-20-2021 AUDIT Referring Prov ider Unknown CI-Tsdozqxzoafdid-Tmnq [place] Work Phone: Start: 01-28-2021 Office consultation new/estab patient 60 min Referring Provider Unknown BC-Sozonknqqemtho-[place] Work Phone: Procedures Date Procedure Procedure Detail Performing Clinician Start: 07-17-2024 Plain chest X-ray PHYSI CHONG NO FAM[facility] Start: 07-17-2024 Quick Strep (POC) PHYSI CHONG NO FAM[facility] Start: 05-24-2024 AUDITORY FUNCTION TESTS Esther Suárez [facility] Work Phone: Start: 02-10-2024 Mammography Tian forrest DO Work Phone: Repair of anterior cruciate ligament of knee joint Referring Provider Unknown Plan of Treatment Date Care Activity Detail Author Start: 03-22-2028 Screening for malign ant neoplasm of cervix [facility] Start: 06-01-2025 End: 06-01-2025 Patient encounter procedure [facility] Start: 05-30-2025 End: 05-30-2025 Clinical Support 05/30/2025 8:15 AM EDT Clinical Support [facility] [address] [facility] [address] [place] [id number] Esther Suárez, [facility] [address] [facility] [place] [address] [facility] Start: 05-07-2025 Influenza vaccination Influenz a Vaccine (Season Ended) [facility] Start: 02-12-2025 End: 02-12-2025 Patient encounter procedure 02/12/2025 11:00 AM EDT Office Visit [facility] [address] [place] [address] Vanna Kellogg, DO [address] [place] [address] [facility] Start: 02-09-2025 Screening for malign ant neoplasm of breast Mammogram [facility] Start: 11-23-2024 End: 11-23-2024 Patient encounter procedure 11/23/2024 8:00 AM EDT Office Visit [facility] [address] [place] [address] Brice Brunson PA [address] [place] [address] [facility] Start: 11-22-2024 End: 11-22-2024 Patient encounter procedure 11/22/2024 8:00 AM EDT Office Visit [facility] [address] [place] [phone] Brice Brunson PA [address] [place], [place] [id number] [facility] Start: 10-04-2024 End: 10-04-2024 Clinical Support [facility] Comment on above: Arrived Start: 09-28-2024 End: 09-28-2024 Patient encounter procedure [facility] [address] Start: 09-13-2024 End: 09-13-2024 Clinical Support [facility] Comment on above: Arrived Start: 08-28-2024 End: 08-28-2024 Patient encounter procedure 08/28/2024 2:20 PM EST Office Visit N[facility]lejandra [facility] [address] [place] [phone] Dave Pearson PA [address] [place] [address] [facility] [address] Start: 08-19-2024 End: 08-19-2024 Clinical Support 08/19/2024 9:00 AM EST Clinical Support [facility] [address] [facility] [place] [address] Esther Suárez, [facility] [address] [address] [place] [address] Arrived [facility] Comment on above: Arrived Start: 06-06-2024 End: 06-06-2024 Patient encounter procedure 06/06/2024 8:40 AM EDT Office Visit NOMAlejandra [facility] [address] [place] [phone] Dave Pearson PA [address] [place] [address] [facility] [place] [address] Start: 06-05-2024 End: 06-05-2024 Patient encounter procedure [facility] [place] [address] Comment on above: Arrived Start: 05-26-2024 End: 05-26-2024 Patient encounter procedure [facility] L[facility]AINE [facility] Comment on above: Arrived Start: 05-24-2024 End: 05-24-2024 Clinical Support 05/24/2024 9:30 AM EDT Clinical Support [facility] [address] [place] [phone] Esther Suárez, CCC-A [address] [place] [address] Arrived [facility] Comment on above: Arrived Start: 05-07-2024 Influenza vaccination Influenza Vacc ine (#1) [facility] Start: 2004 Screening for malign ant neoplasm of cervix Pap Smear [facility] Immunizations Immunization Date Immunization Notes Care Provider Fa cility 05-02-2021 Pfizer Munoz Cap SARS-CoV-2 Vaccination Tian Fernandes DO Work Phone: [facility] 06-29-2012 influenza, seasonal, injectable Esther Suárez CCC-A Work Phone: [facility] 06-29-2012 influenza virus vacc ine, unspecified formulation Tian Fernandes DO Work Phone: [facility] 05-20-2011 influenza, seasonal, injectable Estherviviana Suárez CCC-A Work Phone: [facility] 07-05-2009 novel influenza-H1N1 -09, preservative-free, injectable Estherviviana Suárez CCC-A Work Phone: [facility] 06-25-2008 influenza virus vacc ine, whole virus Estherviviana Suárez CCC-A Work Phone: [facility] Payers Date Payer Category Payer Self-pay 2024 [facility] [id number] 2024 Unknown [id number] 2021 [employer] Blue [employer] [id number] 5 2021 Unknown 1983 Unknown [id number] [id number] .2. 1983 Unknown [id number] [id number] .2. 1983 Unknown [id number] [id number] .2.1258 1983 Unknown [id number] [id number] .2.1258 1983 Unknown [id number] [id number] .2.1258 1983 Unknown [id number] [id number] .2.1258 1983 Unknown [id number] 2.16.840.1.130995.3.579 .2.1258 1983 Unknown [id number] [id number] .2.1258 1983 Unknown [id number] [id number] .2.1258 1983 Unknown [id number] [id number] .2.1259 1983 Unknown [id number] 2.16.840.1.264968.3.579 .2.1258 1983 Unknown [id number] 2.16.840.1.903293.3.579 .2.9 1983 Unknown [id number] [id number] .2.1258 1983 Unknown [id number] [id number] .2.1259 1959 [facility] ONLAN [id number] [id number] Unknown [id number] [id number] .2.531 Social History Date Type Detail Facility Start: 02-14-2024 End: 11-23-2024 Non-smoker Non-smoker LK-Mnemsntitzmhfk[facility] Work Phone: Start: 02-11-2024 End: 11-23-2024 Sex Assigned At [facility] Other Start: 05-26-2023 End: 07-17-2024 Tobacco smoking status NHIS Never smoked tobacco (finding) [facility] Start: 07-18-2024 Sex Patient sex unknown (finding) [facility] Start: 1985 Sex Assigned At Female [facility] Start: 05-26-2023 Tobacco use and exposure Smokeless tobacco non-user [facility] Start: 02-14-2024 End: 11-23-2024 Alcoholic beverage intake Current drinker of alcohol (finding) [facility] How often to you hav e a drink containing alcohol? Monthly or less [facility] How many standard drinks containing alcohol do you have on a typical day? 1 or 2 [facility] How often do you hav e 6 or more drinks on 1 occasion? Never [facility] Start: 02-01-2023 Alcohol Comment Caffeine intake: 1-2 cups per day of coffee [facility] Start: 01-26-2023 Gender identity Identifies as female gender (finding) [facility] Start: 01-26-2023 Sexual orientation Heterosexual (finding) [facility] Clinical Notes 09-27-2022 to 12-13-2024 Telephone Encounter - IGOR Mas - 12/13/2024 4:27 PM EDTTelephone Encounter - IGOR Mas - 12/13/2024 4:27 PM EDTTelephone Encounter - Brisa Hernandez MA - 12/13/2024 4:11 PM EDT Note Date & Type Note Facility 12-13-2024 Telephone encounter Note Form atting of this note might be different from the original. Sent in amitriptyline. [facility] 12-13-2024 Miscellaneous Notes Formattin g of this note might be different from the original. Sent in amitriptyline. Patient is willing to try another oral medication The pt notes that the dizziness has resolved but migraines have increased to 3 or more a week. Lasting more than 6 hours. Notes that relpax is not working. She did have some imitrex left over from previous and took it and it helped to abort her migraine. I called the patient to see how she was doing. Had to leave a for a call back Could you please check how she is doing with dizziness after taking a break from Trileptal? Thanks! ----- Message from IGOR Mas sent at 11/23/2024 8:17 AM EDT ----- Check how dizziness with drug holiday from Trileptal. (Week of December 07) documented in this encounter [facility] 12-13-2024 Telephone encounter Note Form atting of this note might be different from the original. Patient is willing to try another oral medication [facility] 12-13-2024 Telephone encounter Note Form atting of this note might be different from the original. The pt notes that the dizziness has resolved but migraines have increased to 3 or more a week. Lasting more than 6 hours. Notes that relpax is not working. She did have some imitrex left over from previous and took it and it helped to abort her migraine. [facility] 12-13-2024 Telephone encounter Note Form atting of this note might be different from the original. I called the patient to see how she was doing. Had to leave a for a call back [facility] 12-13-2024 Telephone encounter Note Form atting of this note might be different from the original. Could you please check how she is doing with dizziness after taking a break from Trileptal? Thanks! [facility] 12-13-2024 Telephone encounter Note Form atting of this note might be different from the original. ----- Message from IGOR Mas sent at 11/23/2024 8:17 AM EDT ----- Check how dizziness with drug holiday from Trileptal. (Week of December 07) [facility] 10-11-2024 History of Presen t illness Narrative Patient was in today to be re-fit with a Phonak Audeo I50-R for the left ear. Patient was fit previously and the left aid failed. Patient aids were read together and paired to her phone. Patient felt the aids sounded good and she will contine PRN. Cosigned by REINA Durant at 10/11/2024 4:10 PM EST documented in this encounter [facility] 10-04-2024 History of Presen t illness Narrative Hearing Aid Fitting: Fit pt with Phonak Audeo I50-R DESTINI aids size 2P receivers and custom Silicone Slimtips. Gave pt her old cusom RICs to keep (different pastry cook apprentice type 5.0) Transferred settings from Lumity aids to Infinio aids. Per pt request, increased gain for speech x 2. Also activated tap control for phone calls. Pt will call by Wednesday if she is no satisfied with Infinio aids. Need to send Lumity aids back to QA on Request before next Wednesday. Pt paid $175 for extra powertrain design engineer (charge and go.) documented in this encounter [facility] 09-13-2024 History of Presen t illness Narrative History: Pt here for new hearing aid and mold check. Pt is hearing well and is happy with her current molds. She would like the overall gain of the aids increased slightly. Hearing Aid Check: Received remade left mold for pt but mold is actually shorter than her current mold and it is a CIC style instead of a canal lock. Pt is pleased with current style so I will contact Phonak and return the mold. Increased overall volume x 1 per pt request. [facility]. Lumity is ok to wear in water park. Inquired about waterproofness of Infinio. Per audiology, Infinio is equally waterproof because of the new case production/material. Would like to get pt updated Infinio aids because the I50 is now available (was not available when aids were first ordered.) [facility] will remake pt's slim tip molds to fit with the Infinio receivers at [place]. Will order pt Infinio aids. Will wait to return the Lumity because the Lumity RT has been discontinued and cannot be re-ordered if returned. Want to be sure pt likes Infinio before returning Lumity. Infinio comes with a wall powertrain design engineer. Adding 2nd powertrain design engineer that is portable will cost pt $175. Pt wants 2nd powertrain design engineer and will pay for powertrain design engineer at the hearing aid fitting. documented in this encounter [facility] 08-19-2024 History of Presen t illness Narrative Hearing Aid Fitting: Pt fit with Audio L50-RL aids coupled to custom Phonak Slim Tips. Fit is good. No audible feedback with ear molds. Right aid gain increased x 1 per pt request. Added 2nd program that is louder (x2 steps) in case pt's hearing fluctuates. Program is called Program 2 in [facility] but appears as Calm Situation on her roseann. Paired aids to pt's phone and roseann. Verified streaming with phone call. Pt will return 09-13-24 in [place] for her check up. Will fit her with remade molds (longer canals) at that appointment. Will extend her trial period if needed. documented in this encounter [facility] 07-17-2024 Evaluation note Diagnosis Onset Date Resolution Bronchitis acute July 17, 2024 4:35pm Contact with or suspected exposure to severe acute respiratory syndrome noneactive July 172023 4:35pm Sore throat noneactive July 4:35pm [facility] Work Phone: [phone]) 676-315609-30-2024 History of Present illness Narrative* IGOR Rushing - 06/05/2024 8:20 AM EDT Subjective An Malik is a 39 y.o. year old female Chief Complaint Patient presents with Migraine Fatigue Past Medical History: Diagnosis Date Asthma ([facility]) Common migraine ([facility]/HCC) 04/10/2008 Decreased hearing 2008 Demyelinating disease of central nervous system (HCC) ([facility]) 09/02/2009 Depression ([facility]) Hearing loss, bilateral History of migraine headaches Meniere's disease Meniere's disease 09/02/2009 Migraine ([facility]/HCC) 10/2017 10/2017 Tinnitus 06/03/2009 Past Surgical History: Procedure Laterality Date ANTERIOR CRUCIATE LIGAMENT REPAIR 2006 ANTERIOR CRUCIATE LIGAMENT REPAIR 02/15/2019 OTHER SURGICAL HISTORY aide on left / Hearing loss, bilateral Family History Problem Relation Name Age of Onset Diabetes Father Fernando Manley Sleep apnea Father Fernando Manley Cancer Father's Sister Heaven Live Heart failure Maternal Grandmother Jo Lloyd Cancer Paternal Grandmother Gertrude Manley Diabetes Paternal Grandmother Gertrude Manley Heart failure Paternal Grandmother Gertrude Manley Diabetes Paternal Grandfather Guille Manley Heart failure Paternal Grandfather Guille Manley No Known Problems Daughter Diabetes Other Social History Tobacco Use Smoking status: Never Smokeless tobacco: Never Substance Use Topics Alcohol use: Yes Alcohol/week: 2.0 standard drinks of alcohol Types: 1 Glasses of wine, 1 Standard drinks or equivalent per week Comment: Caffeine intake: 1-2 cups per day of coffee Medication Documentation Review Audit Reviewed by Dolores Gilbert MA (Fast Food Assistant Restaurant Manager) on 06/05/24 at 0822 Medication Order Taking? Sig Documenting Provider Last Dose Status Betahistine HCl (Betahistine Dihydrochloride) powder [id number] No Historical Provider, Taking Active dimenhyDRINATE (Dramamine) 50 MG tablet [id number] No Take 50 mg by mouth as needed at bedtime. Historical Provider, Taking Active loratadine (Claritin) 10 MG tablet [id number] No 1 (one) time each day at the same time Tian Fernandes, Taking Active riboflavin (Vitamin B-2) 100 MG tablet [id number] No Historical Provider, Taking Active SUMAtriptan (Imitrex) 100 MG tablet [id number] No Historical Provider, Taking Active topiramate (Topamax) 25 MG tablet [id number] No Take 1 tab (25mg) PO QAM and 2 tabs (50mg) PO at bedtime IGOR Rushing Taking Active triamcinolone (Kenalog) 0.1 % cream [id number] No APPLY TWICE DAILY TO AFFECTED AREAS OF ITCH NEEDED FOR FLARES Historical Provider, Taking Active triamterene-hydrochlorothiazide (Maxzide-25) 37.5-25 MG tablet [id number] Take 1 tablet by mouth in the morning. Tian Fernandes, DO 08/26/23 2359 HPI Migraines -on topamax -states migraines have got worse -reports 2 migraines a week -lasting about an hour, Imitrex aborts well for her -located frontal -states off as a nagging pain and then goes to sharp -admits sound sensitivity, no light -denies nausea and vomiting -denies any visual changes -sleeping well at night -averages 6-7 hours a night -wakes feeling rested . Fatigue -fatigue is the same -continues to have no motivation -sleeps well at night -reports getting 7 hours of sleep -wakes feeling rested ROS Review of Systems Constitutional: Positive for fatigue. Respiratory: Negative. Cardiovascular: Negative. Gastrointestinal: Negative. Musculoskeletal: Negative. Neurological: Positive for headaches. Objective Visit Vitals BP 98/62 Pulse 62 Resp 16 Ht 5' 9 Wt 190 lb SpO2 97% BMI 28.06 kg/m Smoking Status Never BSA 2.05 m Neurological Exam Mental Status Awake, alert and oriented to person, place and time. Recent and remote memory are intact. Speech isnormal. Language is fluent with no aphasia. Attention and concentration are normal. Fund of knowledge is appropriate for level of education. Cranial Nerves CN II: Visual acuity is normal. Visual perez full to confrontation. CN III, IV, : Extraocular movements intact bilaterally. Normal lids and orbits bilaterally. Pupils equal round and reactive to light bilaterally. CN V: Facial sensation is normal. CN VII: Full and symmetric facial movement. CN VIII: Hearing is normal. CN XI: Shoulder shrug strength is normal. Motor Normal muscle bulk throughout. Normal muscle tone. No abnormal involuntary movements. Sensory Light touch is normal in upper and lower extremities. Gait Casual gait is normal including stance, stride, and arm swing. Motor Examination RUE Strength deltoid, biceps, triceps, wrist extensors, wrist extensors, wrist flexor, director of vocational guidance strength 5/5. LUE Strength deltoid, biceps, triceps, wrist extensors, wrist extensors, wrist flexor, director of vocational guidance strength 5/5. RLE Strength illopsoas, quadriceps, tibialis anterior, and gastrocnemius strength 5/5. LLE Strength illopsoas, quadriceps, tibialis anterior, and gastrocnemius strength 5/5. Tone Normal tone x4 extremities. Reflexes: RUE biceps reflex 2, brachioradialis reflex 2 LUE biceps reflex 2, brachioradialis reflex 2 RLE knee reflex 2, ankle reflex 2 LLE knee reflex 2, ankle reflex 2 Assessment and Plan Diagnoses and all orders for this visit: Migraine without aura and without status migrainosus, not intractable (CMS/HCC) Patient has longstanding history of migraines that occur frontally behind her eyes and can radiate occipitally. She has trialed OTC medications including tylenol and ibuprofen without benefit. She did not have benefit with nurtec or ubrelvy. Imitrex 50mg has been effective in aborting. She had sideeffect with higher dose of imitrex. She has had an increase in migraines. Fatigue, unspecified type Patient continues with fatigue. The fatigue is intermittent and depends on what she did the day before. She does snore some and averages 6-7 hours each night. She has 2 toddlers that wake her up in the night. TSH is unremarkable. Patient declines sleep study. Brain MRI 01/2019: normal. PLAN Inrease topamax to 50mg PO BID for migraine prevention therapy Continue Imitrex 50mg for migraine abortive therapy I counseled patient on potential medication side effects Patient to follow up with this clinic in 2 months or sooner for new or worsening symptoms [facility] [id number] History of Present illness Narrative* Tian Fernandes, DO - 05/26/2024 9:15 AM EDT Subjective Patient ID: An Malik is a 39 y.o. female who presents for Meniere's Disease (Yearly reji) HPI This patient presents for recheck of Meniere's disease, bilateral sensorineural hearing loss and tinnitus. States to be doing well. Patient continues to take betahistine on a regular basis. Not having any difficulties with dizziness at this time. Review of Systems Patient does continue to utilize bilateral hearing aids. States that her tinnitus is still present but under control. Not having any dizzy episodes at this time. The rest of her review of systems is unchanged. Allergies as of 05/26/2024 - Reviewed 05/26/2024 Allergen Reaction Noted Pollen extract 11/29/2023 Past Medical History: Diagnosis Date Asthma ([facility]) Common migraine ([facility]) 04/10/2008 Decreased hearing 2008 Demyelinating disease of central nervous system (HCC) ([facility]) 09/02/2009 Depression ([facility]) Hearing loss, bilateral History of migraine headaches Meniere's disease Meniere's disease 09/02/2009 Migraine ([facility]) 10/2017 10/2017 Tinnitus 06/03/2009 Current Outpatient Medications: Betahistine HCl (Betahistine Dihydrochloride) powder, , Disp: , Rfl: dimenhyDRINATE (Dramamine) 50 MG tablet, Take 50 mg by mouth as needed at bedtime., Disp: , Rfl: loratadine (Claritin) 10 MG tablet, 1 (one) time each day at the same time, Disp: , Rfl: riboflavin (Vitamin B-2) 100 MG tablet, , Disp: , Rfl: SUMAtriptan (Imitrex) 100 MG tablet, , Disp: , Rfl: topiramate (Topamax) 25 MG tablet, Take 1 tab (25mg) PO QAM and 2 tabs (50mg) PO at bedtime, Disp: 270 tablet, Rfl: 1 triamcinolone (Kenalog) 0.1 % cream, APPLY TWICE DAILY TO AFFECTED AREAS OF ITCH NEEDED FOR FLARES, Disp: , Rfl: triamterene-hydrochlorothiazide (Maxzide-25) 37.5-25 MG tablet, Take 1 tablet by mouth in the morning., Disp: 90 tablet, Rfl: 3 Past Surgical History: Procedure Laterality Date ANTERIOR CRUCIATE LIGAMENT REPAIR 2006 ANTERIOR CRUCIATE LIGAMENT REPAIR 02/15/2019 OTHER SURGICAL HISTORY aide on left / Hearing loss, bilateral Social History Socioeconomic History Marital status: Spouse name: Not on file Number of children: Not on file Years of education: Not on file Highest education level: Not on file Occupational History Not on file Tobacco Use Smoking status: Never Smokeless tobacco: Never Substance and Sexual Activity Alcohol use: Yes Alcohol/week: 2.0 standard drinks of alcohol Types: 1 Glasses of wine, 1 Standard drinks or equivalent per week Comment: Caffeine intake: 1-2 cups per day of coffee Drug use: Never Sexual activity: Yes Partners: Male control/protection: Condom Male Other Topics Concern Not on file Social History Narrative Not on file Social Determinants of Health Financial Resource Strain: Not on file Food Insecurity: Not on file Transportation Needs: Not on file Physical Activity: Not on file Stress: Not on file Social Connections: Not on file Intimate Partner Violence: Not on file Housing Stability: Not on file Objective ENT Physical Exam General Examination: General overview: Normal, age-appropriate, no evidence of distress Head: Normocephalic, atraumatic Eyes: Pupils are equally round and reactive to light and accommodation, extraocular muscles are intact Ears: External ear architecture within normal limits, ear canals are patent, tympanic membranes areintact. Review of audiogram does reveal evidence of bilateral sensorineural hearing loss across allfrequencies which is moderate to severe normal tympanograms Nose: External nose unremarkable, nares patent, septum intact, Mild congestion. Oral cavity: Mucosa moist, no evidence of ulcer, mass, or lesion Throat: Clear Neck/thyroid: Neck supple, full range of motion, no cervical lymphadenopathy, no evidence of thyromegaly Lymph nodes: No cervical lymphadenopathy Skin: Warm and dry, no evidence of suspicious lesions, no rash Heart: No jugular venous distention, point of maximal impulse normal Lungs: Good air movement, no audible wheezing, no shortness of breath Chest: Normal shape and expansion Abdomen: Normal, soft, nontender, nondistended Musculoskeletal: Cervical spine normal, full range of motion Extremities: No clubbing, cyanosis, or edema Peripheral pulses: 2+ radial, 2+ carotid Neurologic: Alert and oriented, cranial nerves 2-12 are grossly intact Psych: Alert and oriented, normal affect, no evidence of distress Assessment/Plan Diagnoses and all orders for this visit: Meniere's disease, unspecified laterality Comments: continue current medications Sensorineural hearing loss (SNHL), unspecified laterality Comments: repeat audiogram in 1 year Tinnitus, unspecified laterality Comments: patient will continue tinnitus precautions. Increased betahistine on a day-to-day basis if needed documented in this encounterFreeman [facility]osho [id number] History of Present illness Narrative* Esther Suárez, CCC-A - 05/24/2024 9:30 AM EDT History: Pt here for 6 month recheck Meniere's disease. Pt has history of bilateral sensorineural hearing loss and was fit in 2018 with Phonak Purplleeo M-50 DESTINI aids. In 2021 pt was fit with left silicone mold for her DESTINI aid. Pt believes her hearing has decreased. Her also notices a decrease in her hearing. Pt's current aids no longer last the entire day. Pt is on the phone often and has to stream to be able to hear the conversation. 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 Otoscopic Exam: Right Ear: Ear canal clear and TM intact AU Pure Tone Audiometry Right Ear: Moderate to severe sensorineural hearing loss Left Ear: Moderate to severe sensorineural hearing loss Speech Audiometry Right SRT = 70 dB and word discrimination score at 90 dBHL = 100% Left SRT = 65 dB and word discrimination score at 95 dBHL = 96% Tympanometry Right Ear: Type A tympanogram Left Ear: Type A tympanogram Impressions: Bilateral sensorineural hearing loss with excellent WDS in each ear. Hearing Aids: Pt good candidate for new hearing aids and should be eligible for assistance from [employer]. 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 She also spends a lot of time on the phone and has to have the calls streamed to her phone in order to hear. Leonor discussed different hearing aid options for pt. Her current battery drain may be secondary to the age of the rechargeable battery. If pt wants to change to disposable batteries the Lumity circuit has a 312 battery option. Advised pt that she will have to change the battery frequently because of her power needs and because of frequent streaming. Lumity circuit is available in all 4 levels of technology (30, 50, 70, 90.). Phonak's most current circuit (Infinio and Infinio Sphere) are only rechargeable and only come in the 90 and 70 level. Both the Lumity and the Infinio are compatible with a powercustom DESTINI pastry cook apprentice. Pt will need custom receivers to stay in DESTINI style. Ear impressions taken today without incident. Pt completed [employer] application. She wants to discuss her hearing aid options with h er . Will submit paperwork to [employer]. Pt advised [employer]'s ian year ends June 05 so it may be a few weeks before [employer] reaches out to her. documented in this encounterFreeman Neosho [id number] Evaluation note* Encounter Date Diagnosis Assessment Notes Treatment Notes Treatment Clinical Notes Sep, Contact with and (suspected) exposure [...] no improvement in 2 to 3 days. [facility] Other Evaluation note* Diagnosis Sensorineural hearing loss, bilateral- Primary Tinnitus, bilateral Unspecified tinnitus documented in this encounter [facility]* Diagnosis Sensorineural hearing loss, bilateral- Primary documented in this encounter [facility]* Diagnosis Meniere's disease, unspecified laterality- Primary Sensorineural hearing loss (SNHL), unspecified laterality Tinnitus, unspecified laterality documented in this encounter [facility]Evaluation note* Diagnosis Migraine without aura and without status migrainosus, not intractable (CMS/HCC) documented in this encounter [facility]* Diagnosis Sensorineural hearing loss, bilateral- Primary documented in this encounter [facility]Evaluation note* Diagnosis Migraine without aura and without status migrainosus, not intractable (CMS/HCC)- Primary Fatigue, unspecified type documented in this encounter [facility]Evaluation note* Diagnosis Sensorineural hearing loss, bilateral- Primary documented in this encounter [facility]Evaluation note* Diagnosis Migraine without aura and without status migrainosus, not intractable (CMS/HCC)- Primary Fatigue, unspecified type Migraine without aura, intractable, with status migrainosus (CMS/HCC) documented in this encounter [facility] HealthcareEvaluation [facility]* Diagnosis Migraine without aura and without status migrainosus, not intractable (CMS/HCC)- Primary documented in this encounter [facility] HealthcareHistory general Narrative - Reported* Type Description Date Medical History Menieres Disease Medical History Bledsoe Medical History Left ear deafness Surgical History ACL left knee Surgical History tubal ligation Hospitalization History See past surgical hx [facility] Other History of Present illness Narrative* History of present illness: * This is a 35-year-old female referred by Dr. Veronica for evaluation and management of patient left-sided M ni re's disease and subjective non- bothersome tinnitus. She has been struggling with hearing [...] second daughter. She is also complaining of non- bothersome tinnitus and does take like flavonoid acid for it. Her significant other regarding her condition. Reportedly had an MRI which was negative. * The patient s current medications, active allergies and list of medical problems were reviewed in the EHR and confirmed electronically. * Physical Examination: * CONSTITUTIONAL: No acute distress * VOICE: No hoarseness or other abnormality * RESPIRATION: Breathing comfortably, no stridor * CV: No clubbing/cyanosis/edema in hands * EYES: EOM intact, sclera clear * NEURO: Alert and oriented times 3, Cranial nerves II-XII grossly intact and symmetric bilaterally * HEAD AND FACE: Symmetric facial features, no masses or lesions * RIGHT EAR: Normal external ear and post auricular area, no visible lesions, external auditory canalpatent, tympanic membrane intact, no retraction, no signs of mass, effusion, or infection within the middle ear * LEFT EAR: Normal external ear and post auricular area, no visible lesions, external auditory canal patent, tympanic membrane intact, no retraction, no signs of mass, effusion, or infection within themiddle ear * NOSE: Deferred due to Covid-19 pandemic. * ORAL CAVITY/OROPHARYNX/LIPS: Deferred due to Covid-19 pandemic. * PHARYNGEAL NEIL: Deferred due to Covid-19 pandemic. * NECK/LYMPH: No LAD, no thyroid masses, trachea midline * SKIN: Neck and facial skin is without scar or injury * PSYCH: Alert and oriented with appropriate mood and affect * Romberg test negative * Sharpened Romberg with tendency to fall to the right side. * Diagnostic testing: * Audiogram obtained on 07/24/2020 reviewed showed on the right mild to moderate rising to mild sensorineural hearing loss with excellent speech discrimination. Left was moderate to moderately severe sensorineural hearing loss and speech discrimination 92%. Bilateral asymmetrical sensorineural hearing loss * I personally reviewed the available patient s external record and independently reviewed their audiometric testing as detailed in my note and agree with the detailed report. * Impression: * Asymmetrical sensorineural hearing loss * Left-sided M ni re's disease * History of migraine * History of vertigo * Subjective tinnitus * Recommendation: * We reviewed her different diagnoses. Her M ni [...] All questions were answered to her satisfaction * I discussed with the patient the complexity of my medical decision making including the treatment and testing rational, indications of their elective procedure and possible adverse effects and/or complications. 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 * This note was created using speech recognition automatic buffer software. Despite proofreading, several typographical errors might be present that might affect the meaning of the content. Please call with any questions. [facility] Work Phone: History of Present illness Narrative* History of present illness: * This is a 35-year-old female referred by Dr. Veronica for evaluation and management of patient left-sided M ni re's disease and subjective non- bothersome tinnitus. She has been struggling with hearing [...] second daughter. She is also complaining of non- bothersome tinnitus and does take like flavonoid acid for it. Her significant other regarding her condition. Reportedly had an MRI which was negative. * The patient s current medications, active allergies and list of medical problems were reviewed in the EHR and confirmed electronically. * Physical Examination: * CONSTITUTIONAL: No acute distress * VOICE: No hoarseness or other abnormality * RESPIRATION: Breathing comfortably, no stridor * CV: No clubbing/cyanosis/edema in hands * EYES: EOM intact, sclera clear * NEURO: Alert and oriented times 3, Cranial nerves II-XII grossly intact and symmetric bilaterally * HEAD AND FACE: Symmetric facial features, no masses or lesions * RIGHT EAR: Normal external ear and post auricular area, no visible lesions, external auditory canalpatent, tympanic membrane intact, no retraction, no signs of mass, effusion, or infection within the middle ear * LEFT EAR: Normal external ear and post auricular area, no visible lesions, external auditory canal patent, tympanic membrane intact, no retraction, no signs of mass, effusion, or infection within themiddle ear * NOSE: Deferred due to Covid-19 pandemic. * ORAL CAVITY/OROPHARYNX/LIPS: Deferred due to Covid-19 pandemic. * PHARYNGEAL NEIL: Deferred due to Covid-19 pandemic. * NECK/LYMPH: No LAD, no thyroid masses, trachea midline * SKIN: Neck and facial skin is without scar or injury * PSYCH: Alert and oriented with appropriate mood and affect * Romberg test negative * Sharpened Romberg with tendency to fall to the right side. * Diagnostic testing: * Audiogram obtained on 07/24/2020 reviewed showed on the right mild to moderate rising to mild sensorineural hearing loss with excellent speech discrimination. Left was moderate to moderately severe sensorineural hearing loss and speech discrimination 92%. Bilateral asymmetrical sensorineural hearing loss * I personally reviewed the available patient s external record and independently reviewed their audiometric testing as detailed in my note and agree with the detailed report. * Impression: * Asymmetrical sensorineural hearing loss * Left-sided M ni re's disease * History of migraine * History of vertigo * Subjective tinnitus * Recommendation: * We reviewed her different diagnoses. Her M ni [...] All questions were answered to her satisfaction * I discussed with the patient the complexity of my medical decision making including the treatment and testing rational, indications of their elective procedure and possible adverse effects and/or complications. 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 * This note was created using speech recognition automatic buffer software. Despite proofreading, several typographical errors might be present that might affect the meaning of the content. Please call with any questions. [id number] Work Phone: Reason for visit Narrative* Durable Medical Equipment (Routine) - Closed Specialty Diagnoses / Procedures Referred By Ronal t Referred To Contact Audiology Diagnoses Sensorineural hearing loss, bilateral Procedures PA HEARING AID, DIGIT, BIN, BTE PA HEARING SERVICE [facility] [address] [address] Phone: tel: fax: [facility] [address] [place] [address] Phone: tel: fax: Referral ID Status Reason Start Date Expiration Date Visits Re quested Visits Authorized [id number] Closed 07/04/2024 09/05/2024 1 1 [facility] Chief Complaint New patient visit possible meniere's diseaseNew patient visit possible meniere's disease Summary Purpose Family History Relationship Condition Age at Onset Recorded Date/T panchito father Diabetes mellitus Unknown Advance Directives Advance Directive Response Recorded Date/ Time Advance Directives No January 23 10:26am Chief Complaint and Reason for Visit Chief Complaint Admit Date cough, sore throat July 17, 2024 4:35pm R05.9 - Cough, unspecified July 6:53pm Reason for Visit Admit Date Bronchitis July 17, 2024 4:35pm Contact with or suspected ex posure to severe acute respiratory syndrome July 17, 2024 4:35pm Sore throat July 17, 2024 4:35pm Additional Source Comments INFORMATION SOURCE (unrecogn ized section and content) DATE CREATED AUTHOR 02/01/2021 [employer] DATE CREATED AUTHOR AUTHOR'S ORGANIZ ATION 02/12/2023 [facility] DATE CREATED AUTHOR AUTHOR'S ORGANIZ ATION 07/21/2024 [facility] DATE CREATED AUTHOR AUTHOR'S ORGANIZ ATION 11/25/2024 [facility] EPIC REASON FOR VISIT (unrecogniz ed section and content) Reason Comments Meniere's Disease Yearly reji Reason Comments Migraine Fatigue Reason Comments Fatigue Migraine Reason Comments Migraine Care Teams (unrecognized sec tion and content) Team Status: Active Member Role Status Dates PHYSICIAN NO FAMILY Primary Care Provider Active Team Status: Inactive Member Role Status Dates PHYSICIAN NO FAMILY Primary Care Provider Active Start: July 17, 2024 End: July 17, 2024 Letitia Soriano APRN Attending Provider Active S tart: July 17, 2024 End: July 17, 2024 Wheel Tuner Relationship Specialty Start Date End Date King Constantino MD [address] [place] [id number] Referring Physician Orthopaedic Surgery 11/29/23 Wheel Tuner Relationship Specialty Start Date End Date King Constantino MD [address] [place] [address] Referring Physician Orthopaedic Surgery 11/29/23 Wheel Tuner Relationship Specialty Start Date End Date King Constantino MD [address] [place] [address] PCP - General Family Medicine 08/19/24 King Constantino MD [address] [place] [address] Referring Physician Orthopaedic Surgery 11/29/23 Wheel Tuner Relationship Specialty Start Date End Date King Constantino MD [address] [place] [id number] PCP - General Family Medicine 08/19/24 King Constantino MD [address] [place] [address] Referring Physician Orthopaedic Surgery 11/29/23 Wheel Tuner Relationship Specialty Start Date End Date King Constantino MD [address] [place] [address] Referring Physician Orthopaedic Surgery 11/29/23 Wheel Tuner Relationship Specialty Start Date End Date King Constantino MD [address] [place] [address] Referring Physician Orthopaedic Surgery 11/29/23 Wheel Tuner Relationship Specialty Start Date End Date King Constantino MD [address] [place] [address] Referring Physician Orthopaedic Surgery 11/29/23 Wheel Tuner Relationship Specialty Start Date End Date King Constantino MD [address] [place] [address] Referring Physician Orthopaedic Surgery 11/29/23 Wheel Tuner Relationship Specialty Start Date End Date King Constantino MD [address] [place] [address] PCP - General Family Medicine 08/19/24 King Constantino MD [address] [place] [address] Referring Physician Orthopaedic Surgery 11/29/23 Wheel Tuner Relationship Specialty Start Date End Date King Constantino MD [address] [place] [address] PCP - General Family Medicine 08/19/24 King Constantino MD [address] [place] [address] Referring Physician Orthopaedic Surgery 11/29/23 Ilir Sotelo MD [address] [place] [address] Referring Physician Neurology 09/28/24 Wheel Tuner Relationship Specialty Start Date End Date King Constantino MD [address] [place] [address] PCP - General Family Medicine 08/19/24 King Constantino MD [address] [place] [address] Referring Physician Orthopaedic Surgery 11/29/23 Iilr Sotelo MD [address] [place] [address] Referring Physician Neurology 09/28/24 Wheel Tuner Relationship Specialty Start Date End Date King Constantino MD [address] [place] [address] PCP - General Family Medicine 08/19/24 King Constantino MD [address] [place] [address] Referring Physician Orthopaedic Surgery 11/29/23 Ilir Sotelo MD [address] [place] [phone] Referring Physician Neurology 09/28/24 Wheel Tuner Relationship Specialty Start Date End Date King Constantino MD [address] [place] [address] PCP - General Family Medicine 08/19/24 King Constantino MD [address] [place] [address] Referring Physician Orthopaedic Surgery 11/29/23 Ilir Sotelo MD [address] [place] [phone] Referring Physician Neurology 09/28/24 Wheel Tuner Relationship Specialty Start Date End Date King Constantino MD [address] [place] [address] PCP - General Family Medicine 08/19/24 King Constantino MD [address] [place] [address] Referring Physician Orthopaedic Surgery 11/29/23 Ilir Sotelo MD [address] [place] [address] Referring Physician Neurology 09/28/24 Brice Brunson PA [address] [place] [address] Physician Vp Neurology 11/23/24 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 [employer] [facility]. provides no warranty or guarantee of the accuracy or completeness of information in this document.
== END 2025-02-12 08:46 | disposition home or self-care (01) ==
LOC: MAMMO 08:46
PROVIDERS: PCP Family Medicine; Visit Provider Obstetrics & Gynecology
DX: Z01.419 Encounter for gynecological examination (general) (routine) without abnormal findings (principal); Z12.31 Encounter for screening mammogram for malignant neoplasm of breast; Z80.8 Family history of malignant neoplasm of other organs or systems; R92.8 Other abnormal and inconclusive findings on diagnostic imaging of breast
CPT/HCPCS: 77063; 77067; 88175

== ENCOUNTER 2025-02-12 12:22 | Outpatient (REF) | payer BC, SELFPAY | END 2025-02-12 12:23 | disposition home or self-care (01) | LOC: LAB 12:22 | PROVIDERS: PCP Family Medicine; Visit Provider Obstetrics & Gynecology | DX: Z01.419 Encounter for gynecological examination (general) (routine) without abnormal findings (principal) | CPT/HCPCS: 87624; 88175 ==